=== PATIENT | female | born 1955 | race Caucasian/White ===

== ENCOUNTER 2019-10-01 08:56 | Outpatient (CLI) | payer OTHER, SELFPAY ==
--- NOTE | ~2019-10-01 | DEXA_ITS ---
Bone Density Report Name: Mallika Avitia Age: 63 Sex: Female Ethnicity: White Date of : 1955 Indication: postmenopausal; Referring Provider: Lisbeth Self Study: Bone densitometry was performed. Exam Date: October 01, 2019 Accession number: [id number] Bone Density: Region BMD T-score Z-score Classification AP Spine (L1, L2, L3) 0.926 -0.8 0.8 Normal Femoral Neck (Left) 0.783 -0.6 0.9 Normal Total Hip (Left) 0.893 -0.4 0.8 Normal Total Hip Bilateral Avg 0.919 -0.2 1.0 Normal Femoral Neck (Right) 0.634 -1.9 -0.5 Osteopenia Total Hip (Right) 0.943 0.0 1.2 Normal World Health Organization criteria for BMD impression classify patients as: Normal (T-score at or above -1.0), Osteopenia (T-score between -1.0 and -2.5), or Osteoporosis (T-score at or below -2.5). 10-year Fracture Risk(1): Major Osteoporotic Fracture 9.6% Hip Fracture 1.2% Reported Risk Factors: [place] (), Neck BMD=0.634, BMI=33.2 (1) FRAX(R) Version 3.08. Fracture probability calculated for an untreated patient. Fracture probability may be lower if the patient has received treatment. Clinical Information Provided by Patient: Has used the following medications: Vitamin D Patient maximum height was 60.5 Menopause Age: 50 Drinks caffeinated beverages Onset of menses at age 13 Number of children 2 Impression: The patient has low bone mass, based on the Right Femoral Neck T-score. The patient has an estimated ten-year risk of hip fracture of 1.2% and an estimated ten-year risk of major fracture of 9.6%, based on the WHO FRAX algorithm. Discussion: BONE DENSITY IS LOW AT ONE OR MORE SKELETAL SITES. This patient's lowest T-score is low at one or more skeletal sites. It meets the World Health Organization's (WHO) criteria for ?low bone mass? (T-score between -1.0 and -2.5). The patient's 10-year risk of fracture as calculated by FRAX is less than the threshold where pharmacological therapy is recommended by the National Osteoporosis Foundation (NOF). However, all treatment decisions require clinical judgment and consideration of individual patient factors, including patient preferences, comorbidities, previous drug use, risk factors not captured in the FRAX model (e.g., frailty, falls, vitamin D deficiency, increased bone turnover, interval significant decline in bone density) and possible under or overestimation of fracture risk by FRAX. The patient should follow a healthful lifestyle (good nutrition with adequate calcium and vitamin D, and appropriate weight-bearing exercise). Follow-Up: Consider repeating this study in 2 to 3 years to reassess this patient's status, or sooner if there is some new clinical indication. Reported by: AMMON on 10/01/2019 9:36:00 AM. Reviewe
--- NOTE | ~2019-10-01 | MM_ITS ---
EXAMINATION: MM screening [facility] w shasha HISTORY: Screening TECHNIQUE: Craniocaudal and mediolateral oblique 3-D tomosynthesis images were obtained and synthetic 2-D images were generated. CAD analysis was submitted and interpreted. COMPARISON: 04/28/2018 bilateral digital screening mammogram 09/19/2015 bilateral digital screening mammogram BREAST PARENCHYMAL COMPOSITION: There are scattered areas of fibroglandular density. FINDINGS: There is no evidence of suspicious mass, calcification, or architectural distortion to sugg est malignancy in either breast. There has been no suspicious interval change. IMPRESSION: 1. No mammographic evidence of malignancy. 2. Recommend routine screening mammography in one year. BI-RADS Category 1: Negative Reviewed, dictated and finalized at location A.
== END 2019-10-01 08:57 | disposition home or self-care (01) ==
PROVIDERS: Visit Provider Advanced Practice Midwife
DX: Z12.31 Encounter for screening mammogram for malignant neoplasm of breast (principal); Z13.820 Encounter for screening for osteoporosis; Z78.0 Asymptomatic menopausal state; M85.851 Other specified disorders of bone density and structure, right thigh
CPT/HCPCS: 77063; 77067; 77080

== ENCOUNTER 2020-10-04 09:26 | Outpatient (CLI) | payer OTHER, SELFPAY ==
--- NOTE | ~2020-10-04 | MM_ITS ---
EXAMINATION: MM screening [facility] BI w shasha HISTORY: Screening mammogram TECHNIQUE: Craniocaudal and mediolateral oblique 3-D tomosynthesis images were obtained and synthetic 2-D images were generated. CAD analysis was submitted and interpreted. COMPARISON: 10/01/2019, 05/07/2018, 04/18/2018, 09/19/2015 BREAST PARENCHYMAL COMPOSITION: There are scattered areas of fibroglandular density. FINDINGS: Stable architectural distortion in the right breast is consistent with history of excisiona l biopsy. There is no evidence of suspicious mass, calcification, or architectural distortion to sugg est malignancy in either breast. There has been no suspicious interval change. IMPRESSION: 1. No mammographic evidence of malignancy. 2. Recommend routine screening mammography in one year. BI-RADS Category 2: Benign finding(s). Reviewed, dictated and finalized at location A.
== END 2020-10-04 09:27 | disposition home or self-care (01) ==
LOC: ANHIMG 09:29
PROVIDERS: PCP Family Medicine; Visit Provider Advanced Practice Midwife
DX: Z12.31 Encounter for screening mammogram for malignant neoplasm of breast (principal)
CPT/HCPCS: 77063; 77067

== ENCOUNTER → 2020-10-07 10:25 | Outpatient (CLI) | payer OTHER, SELFPAY ==
--- NOTE | ~2020-10-07 | XR_ITS ---
XR lumbar spine min 4V DATE: 10/07/2020 10:40 INDICATION: Low back pain. No injury. TECHNIQUE: AP, lateral, bilateral oblique views, coned lateral lumbosacral view COMPARISON: None FINDINGS: There is mild levoscoliosis. There are six functional lumbar vertebrae. No fracture or bone destruction is detected. The lumbar pedicles are intact. No spondylolysis or spondylolisthesis. There is mild degenerative disc disease. The sacroiliac joints are intact. IMPRESSION: Mild levoscoliosis Mild degenerative disc disease Reviewed, dictated and finalized at location A.
== END ==
PROVIDERS: PCP Nurse Practitioner; Visit Provider Nurse Practitioner
DX: M51.36 Other intervertebral disc degeneration, lumbar region (principal)
CPT/HCPCS: 72110

== ENCOUNTER → 2020-11-22 14:57 | Outpatient (CLI) | payer MEDICARE, SELFPAY ==
--- NOTE | ~2020-11-22 | XR_ITS ---
XR knee LT min 4V DATE: 11/22/2020 15:30 INDICATION: Medial left knee pain TECHNIQUE: Standing AP, PA and lateral views. [place] view. COMPARISON: None FINDINGS: There is periarticular spurring of the patella. There is minimal periarticular spurring at the medial and lateral compartments. Medial and lateral compartment joint spaces are relatively prese rved. No fracture or dislocation or joint effusion, periosteal reaction or bone destruction or radiopaque i ntra-articular loose body is evident. Diffuse osteopenia IMPRESSION: Osteopenia Mild osteoarthritis Reviewed, dictated and finalized at location B.
--- NOTE | ~2020-11-22 | XR_ITS ---
XR knee RT min 4V DATE: 11/22/2020 15:31 INDICATION: Medial right knee pain, chronic TECHNIQUE: [place] and standing AP, PA and lateral views COMPARISON: None FINDINGS: There is tricompartment osteoarthritis with prominent periarticular patellar spurring, prom inent loss of medial compartment and mild periarticular spurring of the lateral compartment. No fracture, dislocation or joint effusion. No periosteal reaction or bone destruction. No radiopaq ue intraarticular loose body or chondrocalcinosis. IMPRESSION: Tricompartment osteoarthritis Reviewed, dictated and finalized at location B.
== END ==
PROVIDERS: PCP Nurse Practitioner; Visit Provider Nurse Practitioner
DX: M17.0 Bilateral primary osteoarthritis of knee (principal); M85.862 Other specified disorders of bone density and structure, left lower leg
CPT/HCPCS: 73564

== ENCOUNTER 2021-10-12 09:40 | Outpatient (CLI) | payer MEDICARE, SELFPAY ==
[2021-10-12 19:44] LABS: Basophils Percent Auto 0.5 % (0.2-1.2); Eosinophils Absolute Auto 0.2 K/mm3 (0-0.3); Eosinophils Percent Auto 3.2 % (0-4.4); Hematocrit 41.3 % (37.0-47.0); Hemoglobin 13.3 g/dL (12.0-15.0); Immature Granulocyte Absolute 0.01 K/mm3 (0.00-0.031); Immature Granulocyte Percent A 0.2 % (0-0.5); Lymphocytes Absolute Auto 2.15 K/mm3 (0.9-3.2); Lymphocytes Percent Auto 36.4 % (18.3-44.2); Mean Corpuscular HGB Conc 32.2 g/dl (32-36); Mean Corpuscular Hemoglobin 27.3 pg (26-34); Mean Corpuscular Volume 84.8 fl (80-100); Mean Platelet Volume 9.7 fl (7.4-10.4); Monocytes Absolute Auto 0.4 K/mm3 (0.1-0.6); Monocytes Percent Auto 7.4 % (2.6-8.5); Neutrophils Absolute Auto 3.1 K/mm3 (1.3-6.7); Neutrophils Percent Auto 52.3 % (45.5-73.1); Platelet Count Result 230 k/mm3 (150-375); Red Blood Count 4.87 M/mm3 (4.2-5.4); Red Cell Distribution Width 14.1 % (11.5-14.5); White Blood Count 5.9 K/mm3 (4.5-10.0)
[2021-10-12 19:59] LABS: LDL Cholesterol Direct 81 mg/dL
[2021-10-12 20:07] LABS: Alanine Aminotransferase 21 U/L (6-35); Albumin Level 4.1 g/dL (3.5-5.1); Alkaline Phosphatase 123 U/L (38-126); Anion Gap 12 mmol/L (8-16); Aspartate Amino Transferase 34 U/L (14-36); Bilirubin,Total 0.6 mg/dL (0.2-1.3); Blood Urea Nitrogen 15 mg/dL (7-17); Calcium 9.1 mg/dL (8.4-10.2); Carbon Dioxide 26 mmol/L (22-30); Chloride 102 mmol/L (98-107); Cholesterol 170 mg/dL (0-200); Estimated Glomerular Filt Rate > 60; Glucose 88 mg/dL (65-110); HDL Direct 45 mg/dL; Potassium 3.7 mmol/L (3.4-5.0); Sodium 140 mmol/L (137-145); Triglycerides 142 mg/dL (<150)
== END 2021-10-12 09:41 | disposition home or self-care (01) ==
LOC: ANHGOSHLAB 09:46
PROVIDERS: PCP Nurse Practitioner; Visit Provider Nurse Practitioner
DX: E78.5 Hyperlipidemia, unspecified (principal)
CPT/HCPCS: 36415; 80053; 80061; 85025

== ENCOUNTER 2021-10-30 08:01 | Outpatient (CLI) | payer MEDICARE, SELFPAY ==
--- NOTE | 2021-10-30 08:51 | ECG_ITS ---
Measurements Intervals [place] Rate: 71 P: 40 ID: 166 QRS: 3 QRSD: 81 T: 3 QT: 376 QTc: 409 Interpretive Statements SINUS RHYTHM BORDERLINE ST-T WAVE ABNORMALITY- ANT/INF LEADS BASELINE ARTIFACT- I, II, III, AVR, AVF, V3-V6 BORDERLINE ECG NO PREVIOUS ECG AVAILABLE FOR COMPARISON Electronically Signed On 10-30-2021 9:59:13 CDT by Randall Hill D.O.
[2021-10-30 09:43] LABS: Appearance Urine Clear (Clear); Bilirubin Urine Negative (Negative); Blood Urine Negative (Negative); Color Urine Yellow (Yellow); Glucose Urine UA Negative (Negative); Ketones Urine Negative (Negative); Leukocyte Esterase Ur Negative LEU/UL (Negative); Nitrate Urine Negative (Negative); Protein Urine Negative (Negative); Urobilinogen Urine 0.2 mg/dL (<2.0)
[2021-10-30 09:52] LABS: Urine Cotinine NEGATIVE
[2021-10-30 09:53] LABS: Partial Thromboplastin Time 26.9 SECONDS (22.3-36.8); Prothrombin Time 12.4 Seconds (11.1-14.7)
[2021-10-30 09:55] LABS: Hemoglobin A1C 5.3 % (<5.7)
[2021-10-30 09:59] LABS: Add Urine Microscopic? NO
== END 2021-10-30 08:02 | disposition home or self-care (01) ==
LOC: ANHSURGERY 08:05
PROVIDERS: PCP Nurse Practitioner; Visit Provider Orthopaedic Surgery
DX: M17.11 Unilateral primary osteoarthritis, right knee (principal); Z01.818 Encounter for other preprocedural examination; R94.31 Abnormal electrocardiogram [ECG] [EKG]
CPT/HCPCS: 80307; 81003; 83036; 85610; 85730; 87081; 93005

== ENCOUNTER 2021-11-16 19:10 | Observation (INO) | payer MEDICARE, SELFPAY ==
[2021-10-30 08:10] VITALS: BMI 35.9
--- NOTE | 2021-10-30 08:34 | PC.NURSE ---
Report to the Outpatient Waiting Room, entrance under the green pavilion located off [facility], at time __0600 on date __11/15/21 . OR Time: __729 . Time changes happen often and if your time is changed the preop area will call you the afternoon before. - You and your visitor will be asked to self-screen and do not enter if you have any COVID symptoms. - Only one visitor and NO children visitors are allowed at this time. - The patient visitor is requested to leave or wait in car when not with patient due to restrictions. - A mask is required within the hospital. Patients may have clear liquids (water, carbonated beverages, clear teas, apple juice) until 3 hours prior to surgery with a maximum of 20 ounces. - No food from midnight until time of surgery - Infants may have breast milk until 4 hours before surgery, formula 6 hours prior to surgery. - Children will be allowed to drink immediately following surgery. If applicable, please bring a bottle or sippy cup to assist with drinking. Juice, water, soda, and popsicles are readily available. For infants on formula, please bring formula the day of surgery. Pacifiers are allowed. Take the following medications with a SIP of water the morning of surgery: ___FLUOXETINE Medications to discontinue per physician __ASPIRIN AND IBUPROFEN PER DR OCAMPO. ALL VITAMINS AND SUPPLEMENTS 3 DAYS PRE OP Date to take last dose____11/11/21 Please no make-up, nail tunisian, hairspray, perfume, deodorant, or body powder the day of surgery. No jewelry (including any body piercings) or valuables the day of surgery, leave them at home. Please take a shower or bath the night before, or the morning of, surgery with an antibacterial soap. Wear comfortable, loose fitting clothing. Children are encouraged to wear pajamas. - Jewelry must be removed prior to entering the operating room. Rings and piercings that are not removed may be cut off. - The hospital will not accept responsibility for valuables. - Please leave all valuables, including medications, at home the day of surgery. If you are going home after surgery, a licensed otr company driver must drive you home. - NO public transportation without another adult. - We recommend that an adult stay with you for 24 hours following discharge. - We also recommend that you do not drive, make important decision, drink alcoholic beverages, or take any drugs that were not prescribed by your health care provider for at least 24 hours after your discharge time. For Pediatric surgeries, we recommend two adults accompany the child home (only one inside the building at this time). Follow any additional instructions given to you from your surgeon. If you or anyone in your household have experienced Covid symptoms in the past week, please notify your surgeon or the nurse liaison at the phone number below for possible testing. VERBAL AND WRITTEN instructions given to ___PATIENT and asked if any additional questions and then verbalized understanding. Patient advised to call surgeon office or pre surgery nurse liaison [phone] if any additional questions.
[2021-10-30 08:46] VITALS: BP 143/86; PULSE 72; RESP 18; TEMP 36.8; O2SAT 97
--- NOTE | 2021-11-14 14:10 | WPDANESEPPF ---
Anes - Initial Pre Proc Eval Procedure: Operation Date: 11/15/21 07:30 Proposed Procedures p Right Total Knee Arthroplasty - Merritt Valladares MD Date/Time: 11/14/21 14:10 Surgeon: Merritt Valladares MD Pre Op Diagnosis: right knee djd Patient Data Age: 66 Gender: F Height: 1.52 m Weight: 83.5 kg Last Vital Signs Temp 36.8 C 10/30/21 08:46 Pulse 72 10/30/21 08:46 Resp 18 10/30/21 08:46 BP 143/86 H 10/30/21 08:46 Pulse Ox 97 10/30/21 08:46 O2 Del Method Room Air 10/30/21 08:46 Allergies Allergy/AdvReac Type Severity Reaction Status Date / Time No Known Allergies Allergy Verified 11/15/21 06:25 Home Medications Medication Instructions Recorded Confirmed Type fluoxetine 20 mg capsule 20 mg PO DAILY 09/27/20 11/15/21 History aspirin 81 mg tablet,delayed 81 mg PO DAILY 11/21/20 11/15/21 History release tramadol 50 mg tablet 50 mg PO Q8H PRN pain #30 tabs 07/31/21 11/15/21 Rx atorvastatin 20 mg tablet See Rx Instructions .Route 10/02/21 11/15/21 Rx .COMPLEX #90 tabs cholecalciferol (vitamin D3) 50 50 mcg PO DAILY 10/30/21 11/15/21 History mcg (2,000 unit) tablet ibuprofen 400 mg tablet 400 mg PO TID PRN Pain 10/30/21 11/15/21 History vitamin E 200 unit tablet 180 mg PO DAILY 10/30/21 11/15/21 History ECG: Date of Service: 10/30/21 Procedure(s): CA 12 lead EKG Accession Number(s): [id number] cc: ~ ? Measurements Intervals? [place]? Rate: ? 71 ? P:? 40 [place]: ? 166? QRS:? 3 QRSD: ? 81 ? T:? 3 QT: ? 376? QTc:? 409? Interpretive Statements SINUS RHYTHM BORDERLINE ST-T WAVE ABNORMALITY- ANT/INF LEADS BASELINE ARTIFACT- I, II, III, AVR, AVF, V3-V6 BORDERLINE ECG NO PREVIOUS ECG AVAILABLE FOR COMPARISON Electronically Signed On 10-30-2021 9:59:13 CDT by Randall Hill D.O. Patient hx anesthesia problems: none Family hx anesthesia problems: none Results Review: All pre-operative results and documents have been reviewed as part of the pre-operative evaluation. [facility] Past Medical History Medical History (Updated 11/14/21 @ 14:11 by Davis Lawler MD) Anxiety Hyperlipidemia Left knee DJD Major depressive disorder, recurrent, unspecified Obesity Right knee DJD Surgical History Surgical History H/O section Family History Family History Father Depression Family history of alcoholism Family history of heart disease in male family member before age 55 Mother Depression Hypertension Family history of malignant neoplasm of kidney Other Asthma Cerebrovascular accident Family history of hypercholesterolemia Social History Social History Smoking status: Never smoker Additional smoking assessment comments: DENIES ANY FORM OF TOBACCO USE Alcohol intake: current Alcohol use details: 1-2 drinks per month Substance use: never Substance use type: does not use Living arrangements: with family Gender identity (if verbalized by the patient): Female Sexual Orientation (if Verbalized by the Patient): Straight or Heterosexual Spiritual care concerns: No Agree to blood products: Yes Anes - Eval Final PreProcedure Day of Procedure 11/14/21 14:10 Patient weight: obese Heart: regular rate and rhythm Lungs: clear to auscultation and normal air movement Airway: Mallampati scale class II Neurological: alert and oriented Last oral intake: >/= 8 hours ASA classification: III Emergent: no Anesthetic plan: proceed Anesthesia type and monitoring: general LMA Results Review: All pre-operative results and
[2021-11-15] VITALS (18 sets, daily range): BP systolic 116–151; BP diastolic 71–91; PULSE 75–105; RESP 10–20; TEMP 36.3–36.8; O2SAT 91–100; BMI 38.4
[2021-11-15] MEDS: ACETAMINOPHEN 500 MG TABLET 1000 MG PO (06:31)
[2021-11-15] MEDS: LACTATED RINGERS 1,000 ML 30 ML IV CONT ×3 (06:40→10:38)
[2021-11-15] MEDS: TRANEXAMIC ACID 1,000MG/ISO100 1,000 MG/100 ML BAG 200 MG IVPB (07:05)
--- NOTE | 2021-11-15 07:12 | WPDANESPNB ---
Anes - Peripheral Nerve Block Date/Time: 11/15/21 07:12 I have discussed with the patient/family/POA the placement of a peripheral nerve block for post-operative pain management, including associated risks, benefits, complications, and side effects. Alternative methods of post-operative analgesia were detailed. Questions were solicited and answers provided to the satisfaction of the patient/family/POA. Time-Out: A pre-procedural Time-Out was completed immediately before starting the procedure and confirmed: Patient Identification, Site, Procedure, Patient Position and the Availability of Requisite Equipment. Clinical Indications: Acute post-operative pain management requested by the operative surgeon. Nerve Block Insertion Note Anes-nerve block: adductor canal right Patient position: supine Skin prep: chlorhexidine Needle: 22 gauge, stimulating, insulated echogenic needle. Needle length: 80 mm Technique: ultrasound Technique comment: in plane Injectate: bupivacaine 0.5% with epi 5 mcg/ml (30cc) Observations: tolerated well Complications: none Procedure start time:: 725 Procedure end time:: 730
--- NOTE | 2021-11-15 07:13 | WPDHPUPDATE1 ---
History and Physical Update Update Date/Time: 11/15/21 07:13 History and Physical has been reviewed, including an updated exam of the patient. There are NO changes in the patient's condition. Risks, benefits, and alternatives have been discussed and questions answered. Patient agrees to proceed with procedure.
[2021-11-15] MEDS: ceFAZolin 2 GM/D5W 50 ML 2 GM/50 ML BAG IVPB ×3 (07:38→23:19)
[2021-11-15] MEDS: GENTAMICIN BONE CEMENT REFOBACIN 1 EACH TOPICAL (08:44)
[2021-11-15] MEDS: TRANEXAMIC ACID 1,000 MG/10 ML AMPUL 1000 MG IV PUSH (09:00)
--- NOTE | 2021-11-15 10:04 | W.PM.PROC2 ---
Procedure Note - Detailed Date of Procedure 11/15/21 Pre-op Diagnosis right knee djd Post-op Diagnosis Same Procedure Performed R TKA Surgeon Merritt Valladares MD Anesthesia General Description of Procedure THE RIGHT KNEE WAS PREPPED AND DRAPED IN THE STERILE FASHION. THERE WAS A 10 DEGREE FLEXION CONTRACTURE. A MIDLINE SKIN INCISION WAS MADE. A MEDIAL PARAPATELLAR ARTHROTOMY WAS MADE. THE PATELLA WAS EVERTED. THERE WAS TRICOMPARTMENT DJD. THERE WAS MINIMAL PATELLA DJD. AN INTRAMEDULLARY ALFRED WAS PLACED IN THE FEMUR. A DISTAL FEMORAL CUT WAS MADE IN 5 DEGREES OF VALGUS REMOVING APPROXIMATELY 9 MM OF BONE FROM THE DISTAL FEMUR. THE FEMUR WAS SIZED TO 57.5. A 57.5 FEMORAL CUTTING BLOCK WAS PLACED IN 3 DEGREES OF EXTERNAL ROTATION AND IN ALIGNMENT WITH ESDRAS'S LINE AND THE TRANSEPICONDYLAR AXIS. ANTERIOR POSTERIOR AND CHAMFER CUTS WERE MADE. THE CUTS WERE EXCELLENT. NEXT AN INTRAMEDULLARY CUTTING GUIDE WAS PLACED IN THE TIBIA. A TRANS TIBIAL CUT WAS MADE ALONG THE LONG AXIS OF THE TIBIA. APPROXIMATELY 10 MM OF BONE WAS REMOVED FROM THE HIGH SIDE OF THE TIBIA. THE TIBIA WAS THEN PLANED TO A SMOOTH SURFACE. POSTERIOR FEMORAL OSTEOPHYTES WERE REMOVED FROM THE FEMORAL CONDYLES. A 63 TIBIAL TRIAL WAS PLACED IN ALIGNMENT WITH THE 1/3 MEDIAL ASPECT OF THE TIBIAL TUBERCLE. THEN A 57.5 FEMORAL TRIAL COMPONENT WAS PLACED. BOTH HAD EXCELLENT FITS. EVENTUALLY A 10 MM CR POLYETHYLENE TRIAL COMPONENT WAS PLACED. THE KNEE WAS TAKEN THROUGH A RANGE OF MOTION. THE KNEE CAME OUT TO FULL EXTENSION. THERE WAS NO ABNORMAL TILT TO THE PATELLA. THERE WAS GOOD A/P AND VARUS/VALGUS STABILITY. THERE WAS NO EXCESSIVE ROLL BACK WITH FLEXION. THE TRIAL COMPONENTS WERE REMOVED. THEN A 57.5 FEMORAL COMPONENT AND 63 TIBIAL COMPONENT WITH A 10 CR POLYETHYLENE COMPONENT WERE CEMENTED INTO PLACE. ONCE THE CEMENT WAS HARD THE KNEE WAS TAKEN THROUGH A ROM AGAIN AND FOUND TO BE STABLE WITH NO PATELLA TILT NO EXCESSIVE ROLL BACK WITH FLEXION AND GOOD STABILITY WITH COMPLETE AND FULL EXTENSION. THE KNEE WAS IRRIGATED WITH STERILE BETADINE AND WATER FOR ABOUT 3 MINUTES. THE BLEEDERS WERE CAUTERIZED. THE ARTHROTOMY WAS REPAIRED WITH NUMBER 1 VICRYL. THE SUB CUTANEOUS LAYER WITH 2-0 VICRYL AND THE SKIN WITH AN. THE WOUND WAS WASHED AND A STERILE DRESSING WAS APPLIED. PATIENT WAS EXTUBATED. Estimated Blood Loss -150.0 Pathology None sent Complications No immediate complications Condition Stable Disposition PACU
[2021-11-15] MEDS: fentaNYL CITRATE INJ (*CRX) 100 MCG/2 ML VIAL 25 MCG IV PUSH ×4 (10:19→10:57)
[2021-11-15] MEDS: KETOROLAC 30 MG/ML VIAL (*BKC) IV PUSH (11:29)
--- NOTE | 2021-11-15 12:28 | ADMGEN ---
This patient, Mallika Avitia, was admitted to [facility] Room 327-01. Patient/family oriented to hospital policies and general routines including ID bracelet, bed and alarms, visiting hours, pain management, procedures, bathroom and other care routines, personal items, smoking policy, room service/diet, and visiting hours. Information on how to activate the Rapid Response Team has been discussed. Patient/Family are encouraged to report perceived risks to care and to ask questions if they do not understand what they are told or what they should do.
[2021-11-15] MEDS: oxyCODONE/ACETAMINOPHEN (*CRX) 5-325 MG TABLET 2 TABLET PO (12:40)
[2021-11-15] MEDS: SODIUM CHLORIDE 0.9% IV 1,000 ML 125 ML IV CONT (12:42)
--- NOTE | 2021-11-15 12:51 | SUR.PHASEI ---
1100 pt ready to transfer to floor, beds are unavailable at this time
[2021-11-15] MEDS: SENNA/DOCUSATE SODIUM TABLET 2 TAB PO (17:15)
[2021-11-15] MEDS: KETOROLAC 15 MG/ML VIAL (*BKC) IV PUSH ×2 (17:15→23:19)
[2021-11-15] MEDS: oxyCODONE/ACETAMINOPHEN (*CRX) 5-325 MG TABLET 1 TABLET PO (19:44)
--- NOTE | ~2021-11-16 | XR_ITS ---
EXAMINATION: XR knee RT 2V DATE: 11/15/2021 09:53 CDT INDICATION: Right total knee arthroplasty TECHNIQUE: 2 views right knee FINDINGS: There is a right total knee arthroplasty in expected position. Subcutaneous gas with fluid and air in the joint and overlying skin juanita are consistent with recent surgery. No evidence of p eriprosthetic fracture. IMPRESSION: 1. Recent right total knee arthroplasty. Reviewed, dictated and finalized at location B.
[2021-11-16 02:06] VITALS: BP 139/77; PULSE 84; RESP 17; TEMP 37.4; O2SAT 100
[2021-11-16] MEDS: KETOROLAC 15 MG/ML VIAL (*BKC) IV PUSH ×3 (05:11→17:00)
[2021-11-16] MEDS: oxyCODONE/ACETAMINOPHEN (*CRX) 5-325 MG TABLET 2 TABLET PO ×3 (05:11→17:02)
[2021-11-16 05:57] LABS: Basophils Percent Auto 0.3 % (0.2-1.2); Eosinophils Percent Auto 0.1 % (0-4.4); Hematocrit 34.8 % (37.0-47.0); Hemoglobin 10.9 g/dL (12.0-15.0); Immature Granulocyte Absolute 0.04 K/mm3 (0.00-0.031); Immature Granulocyte Percent A 0.4 % (0-0.5); Lymphocytes Absolute Auto 1.69 K/mm3 (0.9-3.2); Lymphocytes Percent Auto 16.4 % (18.3-44.2); Mean Corpuscular HGB Conc 31.3 g/dl (32-36); Mean Corpuscular Hemoglobin 27.1 pg (26-34); Mean Corpuscular Volume 86.6 fl (80-100); Mean Platelet Volume 9.3 fl (7.4-10.4); Monocytes Absolute Auto 1.1 K/mm3 (0.1-0.6); Monocytes Percent Auto 10.7 % (2.6-8.5); Neutrophils Absolute Auto 7.4 K/mm3 (1.3-6.7); Neutrophils Percent Auto 72.1 % (45.5-73.1); Platelet Count Result 200 k/mm3 (150-375); Red Blood Count 4.02 M/mm3 (4.2-5.4); Red Cell Distribution Width 13.6 % (11.5-14.5); White Blood Count 10.3 K/mm3 (4.5-10.0)
[2021-11-16] MEDS: ceFAZolin 2 GM/D5W 50 ML 2 GM/50 ML BAG IVPB (06:05)
[2021-11-16 06:12] LABS: Anion Gap 7 mmol/L (8-16); Blood Urea Nitrogen 13 mg/dL (7-17); Calcium 8.2 mg/dL (8.4-10.2); Carbon Dioxide 26 mmol/L (22-30); Chloride 100 mmol/L (98-107); Estimated CRCL calculation 68 ml/min; Estimated Glomerular Filt Rate > 60; Glucose 120 mg/dL (65-110); Potassium 3.6 mmol/L (3.4-5.0); Sodium 133 mmol/L (137-145)
--- NOTE | 2021-11-16 07:32 | WPDANESPN ---
Anes - Prog Note Post-Op Date/Time: 11/16/21 07:32 Cardiovascular status: normal Respiratory status: normal Airway patency: baseline Mental status: baseline Post-Op hydration status: normal Vital Signs: Last Vital Signs Temp 98.3 F 11/15/21 22:06 Pulse 83 11/15/21 22:06 Resp 19 11/15/21 22:06 BP 148/84 H 11/15/21 22:06 Pulse Ox 96 11/15/21 22:06 O2 Del Method Room Air 11/15/21 13:06 O2 Flow Rate 8 11/15/21 10:30 Pain Score (VAS): 0/10 I/O: Intake & Output 11/15/21 11/15/21 11/16/21 15:59 23:59 07:59 Intake Total 1999 480 800 Output Total 1000 Balance 2000 -520 800 Laboratory Tests 11/16/21 05:37 11/16/21 05:37 11/15/21 11/16/21 11/16/21 06:35 05:37 05:37 WBC 10.3 H RBC 4.02 L Hgb 10.9 L Hct 34.8 L MCV 86.6 MCH 27.1 MCHC 31.3 L RDW 13.6 Plt Count 200 MPV 9.3 Immature Gran % (Auto) 0.4 Neut % (Auto) 72.1 Lymph % (Auto) 16.4 L [place] % (Auto) 10.7 H Eos % (Auto) 0.1 Baso % (Auto) 0.3 Lymph # (Auto) 1.69 [place] # (Auto) 1.1 H Eos # (Auto) 0.0 Baso # (Auto) 0.0 Abs Immat Gran (auto) 0.04 H Absolute Neuts (auto) 7.4 H Absolute Nucleated RBC 0.0 Nucleated RBC % 0.0 Sodium 133 L Potassium 3.6 Chloride 100 Carbon Dioxide 26 Anion Gap 7 L BUN 13 Creatinine 0.70 Estim Creat Clear Calc 68 Estimated GFR > 60 Glucose 120 H Calcium 8.2 L Blood Type B Positive Antibody Screen Negative Post-procedural complaints: none Patient Feedback: Patient satisfied with anesthetic care.
[2021-11-16] MEDS: SENNA/DOCUSATE SODIUM TABLET 2 TAB PO ×2 (07:57→17:00)
[2021-11-16] MEDS: polyethylene glycoL 3350 17 GM POWD.PACK PO (07:57)
[2021-11-16] MEDS: FLUoxetine HCL 20 MG CAPSULE PO (07:57)
[2021-11-16] MEDS: ASPIRIN 81 MG ENTERIC TABLET PO (07:57)
[2021-11-16] MEDS: CHOLECALCIFEROL 1,000 UNITS TABLET 2000 UNITS PO (07:57)
[2021-11-16] MEDS: ATORVASTATIN 20 MG TABLET BY MOUTH (07:57)
[2021-11-16 08:00] VITALS: BP 137/76; PULSE 83; RESP 16; TEMP 36.8; O2SAT 96
--- NOTE | 2021-11-16 09:33 | PM.PNORT ---
Progress Note: A&P Assessment and Plan (1) S/P total knee arthroplasty: Qualifiers: Laterality: right Qualified Code(s): Z96.651 - Presence of right artificial knee joint Code(s): Z96.659 - Presence of unspecified artificial knee joint Status: Acute Assessment and Plan: POD #1 : Right TKA Continue PT/OT. WBAT. Walker. HIGH FALL RISK. Continue pain control. Ice Knee. Protect skin. DVT prophylaxis with Aspirin. SCDs. Incentive Spirometry Use reviewed. Monitor Dressing. Change prior to discharge. Bowel Regimen. Dispo: Home with Home Health pending progress with PT/OT Subjective Subjective Date/Time Seen: 11/16/21 09:33 Post Op day: 1 (Right TKA ) Principal diagnosis: Right Knee DJD Interval history: POD #1: Right TKA Patient up in chair at time of evaluation. Pain well controlled. Awaiting PT. Worked well with OT. Concerned about CPM machine not yet being delivered to her home. Review of Systems Review of Systems: All systems reviewed & are unremarkable except as noted in HPI and below Constitutional: Constitutional: Denies fever(s) and Denies headache(s) ENT: Denies headache(s) Cardiovascular: Cardiovascular: Denies chest pain, Denies diaphoresis, Denies palpitations and Denies dyspnea Respiratory: Respiratory: Denies dyspnea Gastrointestinal: Gastrointestinal: Denies abdominal pain, Denies constipation, Denies nausea and Denies vomiting Genitourinary: Genitourinary: Reports nocturia and Denies dysuria Musculoskeletal: Musculoskeletal: Reports arthralgias (Right Knee ) and Reports joint swelling (Right Knee ) Neurologic: Denies headache(s) Endocrine: Endocrine: Denies palpitations Exam Const: General: comfortable and no acute distress Resp: Effort & Inspection: normal respiratory effort Cardio: Rate: regular rate Rhythm: regular rhythm GI: GI Palp: Yes Soft to palpation, No Tenderness to palpation present (GI) and No Guarding due to palpation present (GI) Skin: General skin exam: wounds noted Wounds: wounds noted Other: Incision c/d/i. No surrounding redness/warmth. No hematoma. Mild ecchymosis. No wound dehiscence Neuro: Cognition (Neuro): normal cognition Other: NV intact aside from block. Moves toes. Sensation intact to light touch. +ankle dorsiflexion/plantarflexion. Extrem: Right lower extremity: normal to inspection, knee Details: tenderness (diffuse, mild ) Location: of the patella, swelling (diffuse, consistent with surgical intervention ), abnormal ROM Details: pain with active ROM during, pain with passive ROM during and with range as follows (limited due to recent surgical intervention ); able to extend lower leg actively and ecchymosis (mild ), lower leg (Negative Jeremiah's Sign ) Details: normal to inspection; no erythema and no tenderness, ankle (+ankle dorsiflexion/plantarflexion ) Details: normal to inspection, no edema and normal ROM; no tenderness, no swelling and no ecchymosis and foot Details: normal capillary refill, normal to inspection, vascular exam Details: dorsalis pedis pulse present and motor-sensory exam Details: light-touch normal; no tenderness Left lower extremity: normal to inspection Psych: Mental Status: mental status grossly normal Objective Data Vital Signs Vital Signs: Vital Signs - 24 hr 11/15/21 09:45 11/15/21 10:00 11/15/21 10:15 Temperature 36.4 C Pulse Rate 95 97 89 Respiratory Rate 13 12 11 L Blood Pressure 140/84 146/89 H 146/86 H Pulse Oximetry 100 100 100 Oxygen Delivery Simple Face Mask Simple Face Mask Simple Face Mask Oxygen Flow Rate 8 8 8 11/15/21 10:30 11/15/21 10:45 11/15/21 11:00 Temperature Pulse Rate 90 93 88 Respiratory Rate 20 10 L 14 Blood Pressure 141/79 H 132/80 124/77 Pulse Oximetry 97 93 95 Oxygen Delivery Simple Face Mask Room Air Room Air Oxygen Flow Rate 8 11/15/21 11:15 11/15/21 11:25 11/15/21 11:40 Temperature Pulse Rate 90 85 96 Respiratory Rate 18
[2021-11-16] MEDS: diazePAM (*CRX) 5 MG TABLET PO ×2 (10:53→21:15)
[2021-11-16 12:00] VITALS: BP 126/70; PULSE 81; RESP 16; TEMP 37; O2SAT 96
--- NOTE | 2021-11-16 15:00 | PC.NURSE ---
patient awake and labs being drawn. patient states feeling drowsy, but more comfortable at this time. will continue to monitor.
[2021-11-16 15:30] LABS: Anion Gap 8 mmol/L (8-16); Blood Urea Nitrogen 14 mg/dL (7-17); Calcium 8.4 mg/dL (8.4-10.2); Carbon Dioxide 28 mmol/L (22-30); Chloride 100 mmol/L (98-107); Estimated CRCL calculation 68 ml/min; Estimated Glomerular Filt Rate > 60; Glucose 120 mg/dL (65-110); Potassium 3.6 mmol/L (3.4-5.0); Sodium 136 mmol/L (137-145)
--- NOTE | 2021-11-16 15:43 | PCPTNOTE ---
PT attempted to see patient this afternoon for treatment, however patient having increased pain in R knee and rates pain as 9 out of 10. Pain remains at 9 following pain medication. Patient declined PT due to increased pain. PT will continue to follow.
[2021-11-16 16:00] VITALS: BP 109/68; PULSE 78; RESP 14; TEMP 37; O2SAT 96
[2021-11-16] MEDS: oxyCODONE/ACETAMINOPHEN (*CRX) 5-325 MG TABLET 1 TABLET PO (21:15)
[2021-11-16 22:10] VITALS: BP 141/67; PULSE 95; RESP 16; TEMP 36.8; O2SAT 97
[2021-11-17] MEDS: oxyCODONE/ACETAMINOPHEN (*CRX) 5-325 MG TABLET 1 TABLET PO (06:06)
[2021-11-17] MEDS: diazePAM (*CRX) 5 MG TABLET PO (06:08)
[2021-11-17 06:23] LABS: Anion Gap 10 mmol/L (8-16); Blood Urea Nitrogen 14 mg/dL (7-17); Carbon Dioxide 27 mmol/L (22-30); Chloride 99 mmol/L (98-107); Estimated CRCL calculation 78 ml/min; Estimated Glomerular Filt Rate > 60; Glucose 116 mg/dL (65-110); Potassium 3.6 mmol/L (3.4-5.0); Sodium 136 mmol/L (137-145)
[2021-11-17 06:25] VITALS: BP 133/74; PULSE 93; RESP 19; TEMP 37; O2SAT 97
[2021-11-17] MEDS: ATORVASTATIN 20 MG TABLET BY MOUTH (08:12)
[2021-11-17] MEDS: CHOLECALCIFEROL 1,000 UNITS TABLET 2000 UNITS PO (08:12)
[2021-11-17] MEDS: FLUoxetine HCL 20 MG CAPSULE PO (08:12)
[2021-11-17] MEDS: polyethylene glycoL 3350 17 GM POWD.PACK PO (08:12)
[2021-11-17] MEDS: SENNA/DOCUSATE SODIUM TABLET 2 TAB PO (08:12)
[2021-11-17] MEDS: ASPIRIN 81 MG ENTERIC TABLET PO (08:12)
--- NOTE | 2021-11-17 10:11 | PM.PNORT ---
Progress Note: A&P Assessment and Plan (1) S/P total knee arthroplasty: Qualifiers: Laterality: right Qualified Code(s): Z96.651 - Presence of right artificial knee joint Code(s): Z96.659 - Presence of unspecified artificial knee joint Status: Acute Assessment and Plan: POD #2 : Right TKA Continue PT/OT. WBAT. Walker. HIGH FALL RISK. Difficulty with pain control, Dr. Valladares aware. Continue current regimen. Ice Knee. Protect skin. DVT prophylaxis with Aspirin. SCDs. Incentive Spirometry Use reviewed. Monitor Dressing. Change prior to discharge. Bowel Regimen. Dispo: Home with Home Health pending progress with PT/OT (2) Hyponatremia: Code(s): E87.1 - Hypo-osmolality and hyponatremia Status: Acute Assessment and Plan: Postoperative sodium- 133, rechecked today at 136. Dr. Valladares notified. No recommendation for medicine consult at this time. Plan Patient having slow progress with pain control postoperatively. Requested Dr. Valladares examine and determine possible need for change to pain medication regimen. Will defer further discharge care planning pending evaluation and recommendations by Dr. Valladares. Subjective Subjective Date/Time Seen: 11/17/21 0900 Post Op day: 2 Principal diagnosis: Right Knee DJD Interval history: POD #2: Right TKA Patient ambulating to bathroom independently with walker. Still with reports of pain today. No other concerns. Review of Systems Review of Systems: All systems reviewed & are unremarkable except as noted in HPI and below Constitutional: Constitutional: Denies fever(s) and Denies headache(s) ENT: Denies headache(s) Cardiovascular: Cardiovascular: Denies chest pain, Denies diaphoresis, Denies palpitations and Denies dyspnea Respiratory: Respiratory: Denies dyspnea Gastrointestinal: Gastrointestinal: Denies abdominal pain, Denies constipation, Denies nausea and Denies vomiting Genitourinary: Genitourinary: Reports nocturia and Denies dysuria Musculoskeletal: Musculoskeletal: Reports arthralgias (Right Knee ) and Reports joint swelling (Right Knee ) Neurologic: Denies headache(s) Endocrine: Endocrine: Denies palpitations Exam Const: General: comfortable and no acute distress Resp: Effort & Inspection: normal respiratory effort Cardio: Rate: regular rate Rhythm: regular rhythm GI: GI Palp: Yes Soft to palpation, No Tenderness to palpation present (GI) and No Guarding due to palpation present (GI) Skin: General skin exam: wounds noted Wounds: wounds noted Other: Incision c/d/i. No surrounding redness/warmth. No hematoma. Mild ecchymosis. No wound dehiscence Neuro: Cognition (Neuro): normal cognition Other: NV intact aside from block. Moves toes. Sensation intact to light touch. +ankle dorsiflexion/plantarflexion. Extrem: Right lower extremity: normal to inspection, knee Details: tenderness (diffuse, mild ) Location: of the patella, swelling (diffuse, consistent with surgical intervention ), abnormal ROM Details: pain with active ROM during, pain with passive ROM during and with range as follows (limited due to recent surgical intervention ); able to extend lower leg actively and ecchymosis (mild ), lower leg (Negative Jeremiah's Sign ) Details: normal to inspection; no erythema and no tenderness, ankle (+ankle dorsiflexion/plantarflexion ) Details: normal to inspection, no edema and normal ROM; no tenderness, no swelling and no ecchymosis and foot Details: normal capillary refill, normal to inspection, vascular exam Details: dorsalis pedis pulse present and motor-sensory exam Details: light-touch normal; no tenderness Left lower extremity: normal to inspection Psych: Mental Status: mental status grossly normal Objective Data Vital Signs Vital Signs: Vital Signs - 24 hr 11/16/21 12:00 11/16/21 16:00 11/16/21 20:00 Temperature 37.0 C 37.0 C Pulse Rate 81 78 Respiratory Rate 16 14 Blood Pressure 12
[2021-11-17] MEDS: oxyCODONE/ACETAMINOPHEN (*CRX) 5-325 MG TABLET 2 TABLET PO (11:32)
[2021-11-17 14:00] VITALS: BP 117/68; PULSE 92; RESP 16; TEMP 36.7; O2SAT 93
--- NOTE | 2021-11-17 14:09 | PM.DS ---
DS: Admitting Diagnosis Discharge Date 11/17/21 Admitting Diagnosis Right Knee DJD DS: Discharge Diagnosis Discharge Diagnosis (1) S/P total knee arthroplasty: Qualifiers: Laterality: right Qualified Code(s): Z96.651 - Presence of right artificial knee joint Code(s): Z96.659 - Presence of unspecified artificial knee joint Status: Acute Assessment and Plan: POD #2 : Right TKA Continue PT/OT. WBAT. Walker. HIGH FALL RISK. Difficulty with pain control, Dr. Valladares aware. Continue current regimen. Ice Knee. Protect skin. DVT prophylaxis with Aspirin. SCDs. Incentive Spirometry Use reviewed. Monitor Dressing. Change prior to discharge. Bowel Regimen. Dispo: Home with Home Health pending progress with PT/OT (2) Hyponatremia: Code(s): E87.1 - Hypo-osmolality and hyponatremia Status: Acute Assessment and Plan: Postoperative sodium- 133, rechecked today at 136. Dr. Valladares notified. No recommendation for medicine consult at this time. DS: Summary Hospital Course Reason for hospitalization: Right TKA Hospital Course: 6 year old female admitted s/p Right TKA for postoperative medical management, paint control and mobilization with PT/OT. Slow progress with PT/OT on POD #1, uncontrolled pain and hyponatremia. Required an additional overnight in the hospital. Patient progressed well with PT/OT on POD #2, pain well controlled and improvement in sodium levels. Vitals stable throughout. They have been cleared to be discharged home with home health at this time. Follow up planned for 3 weeks in the outpatient orthopedic clinic with Dr. Valladares. Status at Discharge Functional status at discharge: uses cane/walker Overall status at discharge: patient is progressing back to baseline Time Spent with Patient Time attestation: Total time spent providing and/or coordinating discharge services: Exam Const: General: comfortable and no acute distress Resp: Effort & Inspection: normal respiratory effort Cardio: Rate: regular rate Rhythm: regular rhythm Skin: General skin exam: wounds noted Wounds: wounds noted Other: Incision c/d/i. No surrounding redness/warmth. No hematoma. Mild ecchymosis. No wound dehiscence Neuro: Cognition (Neuro): normal cognition Other: NV intact aside from block. Moves toes. Sensation intact to light touch. +ankle dorsiflexion/plantarflexion. Extrem: Right lower extremity: normal to inspection, knee Details: tenderness (diffuse, mild ) Location: of the patella, swelling (diffuse, consistent with surgical intervention ), abnormal ROM Details: pain with active ROM during, pain with passive ROM during and with range as follows (limited due to recent surgical intervention ); able to extend lower leg actively and ecchymosis (mild ), lower leg (Negative Jeremiah's Sign ) Details: normal to inspection; no erythema and no tenderness, ankle (+ankle dorsiflexion/plantarflexion ) Details: normal to inspection, no edema and normal ROM; no tenderness, no swelling and no ecchymosis and foot Details: normal capillary refill, normal to inspection, vascular exam Details: dorsalis pedis pulse present and motor-sensory exam Details: light-touch normal; no tenderness Left lower extremity: normal to inspection Psych: Mental Status: mental status grossly normal DS: Data Data Completed and Pending Labs on day of discharge: Labs from last 24 hours 11/17/21 11/16/21 05:35 15:15 Sodium 136 L 136 L Potassium 3.6 3.6 Chloride 99 100 Carbon Dioxide 27 28 Anion Gap 10 8 BUN 14 14 Creatinine 0.60 L 0.70 Estim Creat Clear Calc 78 68 Estimated GFR > 60 > 60 Glucose 116 H 120 H Calcium 8.0 L 8.4 Discharge Plan Discharge Attending physician on discharge: Merritt Valladares Discharging Clinician: Otilia Morales Anticipated Discharge Date/Time: 11/17/21 12:00 Patient Disposition: Home Health Service Activity: may shower, no driving a
== END 2021-11-17 14:50 | disposition home health service (06) ==
LOC: ANHSURGERY 21:43 → ANH3MEDSUR 21:43
PROVIDERS: Nurse Practitioner Family; Admitting Provider Orthopaedic Surgery; PCP Nurse Practitioner; Visit Provider Orthopaedic Surgery
PROC: (CPT 27447; principal; 2021-11-15 07:30)
DX: M17.11 Unilateral primary osteoarthritis, right knee (principal); E87.1 Hypo-osmolality and hyponatremia; F41.9 Anxiety disorder, unspecified; E78.5 Hyperlipidemia, unspecified; F33.9 Major depressive disorder, recurrent, unspecified; E66.9 Obesity, unspecified; Z68.34 Body mass index [BMI] 34.0-34.9, adult; G89.18 Other acute postprocedural pain; F10.90 Alcohol use, unspecified, uncomplicated; Z79.82 Long term (current) use of aspirin; Z79.891 Long term (current) use of opiate analgesic; Z79.1 Long term (current) use of non-steroidal anti-inflammatories (NSAID); Z79.899 Other long term (current) drug therapy; Z84.89 Family history of other specified conditions; Z82.49 Family history of ischemic heart disease and other diseases of the circulatory system
CPT/HCPCS: 64447; 27447; 36415; 73560; 80048; 80307; 81003; 83036; 85025; 85610; 85730; 86850; 86900; 86901; 87081; 93005; 97110; 97116; 97161; 97165; 97530; 97535; A9270; C1713; C1776; G0378; J0171; J0690; J1100; J1885; J2250; J2270; J2405; J2704; J2795; J3010; J7030; J7120

== ENCOUNTER 2021-11-22 13:16 | Outpatient (NON) | payer MEDICARE, SELFPAY ==
[2021-11-22 14:06] LABS: Anion Gap 7 mmol/L (8-16); Blood Urea Nitrogen 14 mg/dL (7-17); Calcium 8.5 mg/dL (8.4-10.2); Carbon Dioxide 28 mmol/L (22-30); Chloride 101 mmol/L (98-107); Estimated Glomerular Filt Rate > 60; Glucose 81 mg/dL (65-110); Potassium 3.7 mmol/L (3.4-5.0); Sodium 136 mmol/L (137-145)
== END 2021-11-22 13:17 | disposition home or self-care (01) ==
PROVIDERS: PCP Nurse Practitioner; Visit Provider Nurse Practitioner Family
DX: E87.1 Hypo-osmolality and hyponatremia (principal)
CPT/HCPCS: 80048

== ENCOUNTER 2022-01-05 09:28 | Outpatient (CLI) | payer MEDICARE, SELFPAY ==
--- NOTE | ~2022-01-05 | MM_ITS ---
EXAMINATION: MM screening [facility] BI w shasha HISTORY: Screening mammogram TECHNIQUE: Craniocaudal and mediolateral oblique 3-D tomosynthesis images were obtained and synthetic 2-D images were generated. CAD analysis was submitted and interpreted. COMPARISON: 09/30/2020, 10/01/2019, 07/22/2018 bilateral screening mammogram examinations BREAST PARENCHYMAL COMPOSITION: There are scattered areas of fibroglandular density. FINDINGS: There is a biopsy marker on the right. Mild stable right architectural distortion, likely r elated to history of 2 prior benign right breast biopsies, one open excisional biopsy and 1 needle bi opsy. There is no evidence of suspicious mass, calcification, or new architectural distortion to suggest m alignancy in either breast. There has been no suspicious interval change. IMPRESSION: 1. No mammographic evidence of malignancy. 2. Recommend routine screening mammography in one year. BI-RADS Category 2: Benign finding(s). Reviewed, dictated and finalized at location A. SAW OPERATOR
== END 2022-01-05 09:29 | disposition home or self-care (01) ==
PROVIDERS: PCP Nurse Practitioner; Visit Provider Advanced Practice Midwife
DX: Z12.31 Encounter for screening mammogram for malignant neoplasm of breast (principal)
CPT/HCPCS: 77063; 77067

== ENCOUNTER 2022-09-26 09:40 | Outpatient (CLI) | payer MEDICARE, SELFPAY ==
[2022-09-26 19:26] LABS: Basophils Percent Auto 0.8 % (0.2-1.2); Eosinophils Absolute Auto 0.1 K/mm3 (0-0.3); Eosinophils Percent Auto 2.6 % (0-4.4); Hematocrit 43.3 % (37.0-47.0); Hemoglobin 13.7 g/dL (12.0-15.0); Immature Granulocyte Absolute 0.01 K/mm3 (0.00-0.031); Immature Granulocyte Percent A 0.2 % (0-0.5); Lymphocytes Absolute Auto 1.25 K/mm3 (0.9-3.2); Lymphocytes Percent Auto 23.5 % (18.3-44.2); Mean Corpuscular HGB Conc 31.6 g/dl (32-36); Mean Corpuscular Hemoglobin 28.2 pg (26-34); Mean Corpuscular Volume 89.1 fl (80-100); Mean Platelet Volume 10.1 fl (7.4-10.4); Monocytes Absolute Auto 0.4 K/mm3 (0.1-0.6); Monocytes Percent Auto 7.3 % (2.6-8.5); Neutrophils Absolute Auto 3.5 K/mm3 (1.3-6.7); Neutrophils Percent Auto 65.6 % (45.5-73.1); Platelet Count Result 218 k/mm3 (150-375); Red Blood Count 4.86 M/mm3 (4.2-5.4); Red Cell Distribution Width 13.7 % (11.5-14.5); White Blood Count 5.3 K/mm3 (4.5-10.0)
[2022-09-26 20:30] LABS: Vitamin D 25 Hydroxy 46.1 ng/mL
[2022-09-26 20:40] LABS: Alanine Aminotransferase 19 U/L (6-35); Albumin Level 4.3 g/dL (3.5-5.1); Alkaline Phosphatase 129 U/L (38-126); Anion Gap 6 mmol/L (8-16); Aspartate Amino Transferase 27 U/L (14-36); Bilirubin,Total 0.5 mg/dL (0.2-1.3); Blood Urea Nitrogen 10 mg/dL (7-17); Calcium 9.1 mg/dL (8.4-10.2); Carbon Dioxide 32 mmol/L (22-30); Chloride 101 mmol/L (98-107); Cholesterol 157 mg/dL (0-200); Estimated Glomerular Filt Rate > 60; Glucose 84 mg/dL (65-110); HDL Direct 43 mg/dL; Sodium 139 mmol/L (137-145); Triglycerides 173 mg/dL (<150)
[2022-09-26 20:51] LABS: LDL Cholesterol Direct 78 mg/dL
== END 2022-09-26 09:41 | disposition home or self-care (01) ==
PROVIDERS: PCP Nurse Practitioner; Visit Provider Nurse Practitioner
DX: E78.5 Hyperlipidemia, unspecified (principal); E55.9 Vitamin D deficiency, unspecified
CPT/HCPCS: 36415; 80053; 80061; 82306; 85025

== ENCOUNTER 2023-04-09 09:13 | Outpatient (CLI) | payer MEDICARE, SELFPAY ==
[2023-04-09 18:43] LABS: Basophils Percent Auto 0.5 % (0.2-1.2); Eosinophils Absolute Auto 0.2 K/mm3 (0-0.3); Eosinophils Percent Auto 2.9 % (0-4.4); Hematocrit 44.1 % (37.0-47.0); Hemoglobin 13.6 g/dL (12.0-15.0); Lymphocytes Absolute Auto 1.48 K/mm3 (0.9-3.2); Lymphocytes Percent Auto 26.6 % (18.3-44.2); Mean Corpuscular HGB Conc 30.8 g/dl (32-36); Mean Corpuscular Hemoglobin 27.6 pg (26-34); Mean Corpuscular Volume 89.6 fl (80-100); Mean Platelet Volume 10.2 fl (7.4-10.4); Monocytes Absolute Auto 0.4 K/mm3 (0.1-0.6); Monocytes Percent Auto 7.4 % (2.6-8.5); Neutrophils Absolute Auto 3.5 K/mm3 (1.3-6.7); Neutrophils Percent Auto 62.6 % (45.5-73.1); Platelet Count Result 233 k/mm3 (150-375); Red Blood Count 4.92 M/mm3 (4.2-5.4); Red Cell Distribution Width 13.5 % (11.5-14.5); White Blood Count 5.6 K/mm3 (4.5-10.0)
[2023-04-09 18:47] LABS: Alanine Aminotransferase 16 U/L (6-35); Albumin Level 4.1 g/dL (3.5-5.1); Alkaline Phosphatase 133 U/L (38-126); Anion Gap 2 mmol/L (8-16); Aspartate Amino Transferase 44 U/L (14-36); Bilirubin,Total 0.4 mg/dL (0.2-1.3); Blood Urea Nitrogen 11 mg/dL (7-17); Calcium 9.3 mg/dL (8.4-10.2); Carbon Dioxide 34 mmol/L (22-30); Chloride 103 mmol/L (98-107); Cholesterol 166 mg/dL (0-200); Estimated Glomerular Filt Rate > 60; Glucose 84 mg/dL (65-110); HDL Direct 45 mg/dL; Potassium 3.8 mmol/L (3.4-5.0); Sodium 139 mmol/L (137-145); Triglycerides 158 mg/dL (<150)
[2023-04-09 18:58] LABS: LDL Cholesterol Direct 94 mg/dL
[2023-04-09 20:31] LABS: Vitamin D 25 Hydroxy 47.2 ng/mL
[2023-04-09 20:49] LABS: Hemoglobin A1C 5.5 % (<5.7)
== END 2023-04-09 09:14 | disposition home or self-care (01) ==
PROVIDERS: PCP Family Medicine; Visit Provider Family Medicine
DX: E78.5 Hyperlipidemia, unspecified (principal); F33.9 Major depressive disorder, recurrent, unspecified; R73.9 Hyperglycemia, unspecified; Z79.899 Other long term (current) drug therapy; E53.8 Deficiency of other specified B group vitamins; E55.9 Vitamin D deficiency, unspecified; Z00.00 Encounter for general adult medical examination without abnormal findings
CPT/HCPCS: 36415; 80053; 80061; 82306; 82607; 83036; 84443; 85025

== ENCOUNTER 2023-05-01 16:43 | Outpatient (CLI) | payer MEDICARE, SELFPAY ==
--- NOTE | ~2023-05-01 | MM_ITS ---
EXAMINATION: MM screening [facility] BI w shasha HISTORY: Screening TECHNIQUE: Craniocaudal and mediolateral oblique 3-D tomosynthesis images were obtained and synthetic 2-D images were generated. CAD analysis was submitted and interpreted. COMPARISON: Comparison to multiple prior studies sequentially, with oldest reviewed study dated 09/2018. BREAST PARENCHYMAL COMPOSITION: Not dense: There are scattered areas of fibroglandular density. FINDINGS: There is no evidence of suspicious mass, calcification, or architectural distortion to sugg est malignancy in either breast. There has been no suspicious interval change. IMPRESSION: 1. No mammographic evidence of malignancy. 2. Recommend routine screening mammography in one year. BI-RADS Category 1: Negative Reviewed, dictated and finalized at location A.
== END 2023-05-01 16:44 | disposition home or self-care (01) ==
LOC: ANHIMG 16:46
PROVIDERS: PCP Family Medicine; Visit Provider Advanced Practice Midwife
DX: Z12.31 Encounter for screening mammogram for malignant neoplasm of breast (principal)
CPT/HCPCS: 77063; 77067

== ENCOUNTER 2023-05-16 08:56 | Outpatient (CLI) | payer MEDICARE, SELFPAY ==
[2023-05-16 14:11] LABS: Alanine Aminotransferase 16 U/L (6-35); Albumin Level 4.2 g/dL (3.5-5.1); Alkaline Phosphatase 121 U/L (38-126); Anion Gap 2 mmol/L (4-12); Aspartate Amino Transferase 36 U/L (14-36); Bilirubin,Total 0.6 mg/dL (0.2-1.3); Blood Urea Nitrogen 16 mg/dL (7-17); Calcium 9.5 mg/dL (8.4-10.2); Carbon Dioxide 34 mmol/L (22-30); Chloride 102 mmol/L (98-107); Estimated Glomerular Filt Rate > 60; Glucose 82 mg/dL (65-110); Potassium 3.8 mmol/L (3.4-5.0); Sodium 138 mmol/L (137-145)
== END 2023-05-16 08:57 | disposition home or self-care (01) ==
PROVIDERS: PCP Family Medicine; Visit Provider Family Medicine
DX: R74.01 Elevation of levels of liver transaminase levels (principal)
CPT/HCPCS: 36415; 80053

== ENCOUNTER 2023-07-25 13:00 | Outpatient (CLI) | payer MEDICARE, SELFPAY ==
--- NOTE | ~2023-07-25 | DEXA_ITS ---
Bone Density Report Name: SHERRIE HORN Age: 67 Sex: Female Ethnicity: White Date of : 1955 Indication: postmenopausal; screening for osteoporosis; history of glucocorticoids; Referring Provider: EPIFANIO العلي Study: Bone densitometry was performed. Exam Date: July 25, 2023 Accession number: [id number] Bone Density: Region BMD T-score Z-score Classification AP Spine(L1-L4) 0.924 -1.1 0.8 Osteopenia Femoral Neck (Left) 0.651 -1.8 -0.1 Osteopenia Total Hip (Left) 0.983 0.3 1.7 Normal Femoral Neck (Right) 0.598 -2.3 -0.6 Osteopenia Total Hip (Right) 0.958 0.1 1.5 Normal Total Hip Mean 0.970 0.2 1.6 Normal World Health Organization criteria for BMD impression classify patients as: Normal (T-score at or above -1.0), Osteopenia (T-score between -1.0 and -2.5), or Osteoporosis (T-score at or below -2.5). 10-year Fracture Risk(1): Major Osteoporotic Fracture 18% Hip Fracture 3.9% Reported Risk Factors: [place] (), Neck BMD=0.598, BMI=35.3, glucocorticoids (1) FRAX(R) Version 3.08. Fracture probability calculated for an untreated patient. Fracture probability may be lower if the patient has received treatment. Previous Exams: Region Exam Age BMD T-score BMD Change BMD Change Date g/cm2 vs Baseline vs Previous Total Hip(Left) 07/25/2023 67 0.983 0.3 0.090 (10.1%)* 0.090 (10.1%)* 10/01/2019 63 0.893 -0.4 Total Hip(Right) 07/25/2023 67 0.958 0.1 0.015 (1.6%) 0.015 (1.6%) 10/01/2019 63 0.943 0.0 *Denotes significance at 95% confidence level, LSC for Total Hip = 0.027 g/cm2 Clinical Information Provided by Patient: Has taken Glucocorticoids Has used the following medications: Vitamin D, Calcium Patient maximum height was 50.5 Menopause Age: 50 Drinks caffeinated beverages Onset of menses at age 13 Number of children 2 Impression: The patient has low bone mass, based on the Right Femoral Neck T-score. The patient has an estimated ten-year risk of hip fracture of 3.9% and an estimated ten-year risk of major fracture of 18%, based on the WHO FRAX algorithm. The patient has risk factors, including: history of glucocorticoid therapy. No significant bone loss was observed. Discussion: BONE DENSITY IS LOW AT ONE OR MORE SKELETAL SITES. THE PATIENT'S BMD AND CLINICAL RISK FACTORS CONTRIBUTE TO THIS PATIENT'S INCREASED RISK OF FRACTURE. This patient's lowest T-score is low at one or more skeletal sites. It meets the World He
== END 2023-07-25 13:01 | disposition home or self-care (01) ==
PROVIDERS: PCP Family Medicine; Visit Provider Family Medicine
DX: Z78.0 Asymptomatic menopausal state (principal); M85.88 Other specified disorders of bone density and structure, other site; M85.852 Other specified disorders of bone density and structure, left thigh; M85.851 Other specified disorders of bone density and structure, right thigh
CPT/HCPCS: 77080

== ENCOUNTER 2024-06-23 08:31 | Outpatient (CLI) | payer MEDICARE, SELFPAY ==
--- NOTE | ~2024-06-23 | MM_ITS ---
EXAMINATION: MM screening [place] BI w shasha HISTORY: Screening mammogram TECHNIQUE: Craniocaudal and mediolateral oblique 3-D tomosynthesis images were obtained and synthetic 2-D images were generated. CAD analysis was submitted and interpreted. COMPARISON: 05/01/2023, 12/26/2021, 10/04/2020 BREAST PARENCHYMAL COMPOSITION:Not Dense. There are scattered areas of fibroglandular density. FINDINGS: There is a more conspicuous small low-density mass of the lower, inner left breast. Stable parenchymal appearance of the right breast. No suspicious microcalcifications. IMPRESSION: More conspicuous small lower, inner left breast mass. Spot compression views and ultrasound are recom mended for further evaluation. BI-RADS Category 0: Incomplete: Needs additional imaging evaluation. Reviewed, dictated and finalized at [facility]. IMPRESSION: More conspicuous small lower, inner left breast mass. Spot compression views an d ultrasound are recommended for further evaluation. BI-RADS Category 0: Incomplete: Needs additional imaging evaluation.
--- OUTSIDE RECORDS SUMMARY | 2024-06-23 08:40 | XMS_ITS | Data Portability ---
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 She appears to have an excellent result both clinically with respect to her range of motion and stability in all positions and radiographically . I discussed with her that it is very common for patients to feel a bandlike tightness feeling across the front of the knee at the infrapatellar level like she is describing. This usually improves with time. I discussed with her that studies show that full improvement takes between 12 and 18 months so I would expect she will feel better for half months from now than she does now in some patients continue to improve over time. I explained that 15% of patients in patient reported outcomes studies will have a chronic feeling of anterior knee soreness and is possible that she may be 1 of these patients. Her 02/20 discomfort suggests that this is going to continue to improve and she may eventually get to the point were she has no discomfort. I would also recommend that she stop riding the recumbent stationary bike which is year taping to the fronts of knees inserted people. It is somewhat of an unnatural position to be in and this may be causing irritation to the anterior soft tissues. I do not think that riding this recumbent bike is going to be helpful to her in achieving her goal of causing the knee to feel like a normal knee and it may cause continued problems. I would suggest she stop doing that for the time being and just focus on normal activities of daily living. She has normal quadriceps from so I do not think that the stationary recumbent bike is going to offer her any benefit but could be irritating. I also explained her that the knee replacement is not make the knee identical to a normal knee. Many patients have mild residual symptoms that in most cases are very mild and do not interfere with activities of daily living. I have also suggested that she try losing weight. This may be helpful in decreasing the strain on the anterior soft tissues of the knee. She should do this not by increasing her repetitive exercises involving the knee which will aggravate knee but rather by dieting. She notes that she is on weight watchers currently and attempting to lose some weight. I have discussed with her that there is always the possibility of low-grade infection causing symptoms but I see no evidence clinically of that at this time. If she starts having worsening symptoms the knee could be aspirated to rule that out but I do not think that is indicated today based on her benign clinical appearance. In summary, I believe she has a well-functioning knee replacement right knee that still has some mild residual irritation and hopefully by her giving up the recumbent stationary bike and weight loss and passage of additional time she will eventually feel that her knee is close to perfect. She is scheduled to follow-up with the operating physician the couple months and she is going to keep that appointment. I can see her back on an as-needed basis. 30 minutes were spent total care this patient more than half the time spent in [id number] care. [email or web address] Not available 01/05/2023 16:03:03 Plan of Treatment Reminders Order Date Submit Date Provider Last Modified By Organization Details Last Modified Time Details Appointments None record ed. Lab None record ed. Referral None record ed. Procedures None record ed. Surgeries None record ed. Imaging None record ed. Medication Orders None record ed. Patient TargetsNo targets recorded. Patient InstructionsNo instructions recorded. Reason for Referral None Reported. Problems Name Problem SNOMED Code Status Onset Date Resolution Date Notes Provider Name and Address Organization Details Recorded Time Pain of right knee joint [id number] Active 2022 JACKSON Pinto [employer] 14:50:28 Problem Notes None recorded. Procedures Surgical History Date Name Laterality Status Provider Name and Address Organization Details Recorded Time section completed JACKSON Zaragoza [employer] 12/31/2022 14:49:44 Knee Replacement completed JACKSON Zaragoza [facility] [employer] [facility] 12/31/2022 14:49:52 Imaging Results None recorded. Procedure Notes None recorded. Medical Equipment None Reported. Allergies No known drug allergies Medications Name Sig Start Date Stop Date Status Note LastModified by Organization Details LastModified Time atorvastatin 20 mg tablet TAKE 1 TABLET BY MOUTH EVERY DAY AT BEDTIME active Not Available Not Available No t Available fluoxetine 20 mg capsule TAKE 1 CAPSULE BY MOUTH EVERY DAY active Not Available Not Available No t Available Vitals Date Recorded Body height Body mass index (BMI) Body weight Provider Name and Address Organization Details Last Updated DateTime 12/31/2022 151.13 cm 34.8 kg/m2 95359.66 g JACKSON Pinto [facility] [employer] [facility] 12/31/2022 14:59:55 Social History None recorded. Functional Status Question Answer Note LastModified by Organizat ion Details LastModified Time What is your level of alcohol consumption? Occasional Information not available 12/31/2022 Mental Status None recorded. Family History Relationship Description Onset Age of this Age Resolved Age Notes LastModified by Organization Details LastModified Time Mother Heart disease [email or web address] Not available 2022 14:49:01 Mother Family history of malignant neoplasm [email or web address] Not available 2022 14:49:23 Father Family history of stroke [email or web address] Not available 2022 14:49:13 Medical History No medical history recorded. Gynecological HistoryNo gynecological history recorded. Obstetrics History GPAL:G 0 P 0 0 0 0 Past Encounters Encounter ID Performer Location Encounter Start Date Encounter Closed Date Diagnosis/Indication Diagnosis SNOMED-CT Code Diagnosis ICD10 Code Diagnosis Note [id number] Jose Luis Andrea MD [facility] [address] [place] [address] 12/31/2022 14:29:51 01/07/2023 11:05:50 Pain of right knee joint [id number] 04550 M25.561 Health Concerns Section Related Observation LastModified by Organization Detai ls LastModified Time None Recorded Concern Status LastModified by Organization Details LastModified Time None Recorded Advance Directives Directive None Recorded Payers Encounter Date Sequence Insurance Name Policy Number Policy Ram Covered Member ID Rma Member ID Guarantor Name 12/31/2022 1 [employer] (MEDICARE REPLACEMENT PPO) [id number] Mallika Montanez Sadi [id number] Mallika Avitia Notes Date Note Type Note Provider Name and Address Organization Details Recorded Time 12/31/2022 text/html Patient is 67-year-old female who presents for evaluation of her right knee pain. She underwent right total knee arthroplasty by another orthopedic surgeon 13 half months ago. She has several complaints and is concerned that there is a problem with her knee replacement. She had no trouble with wound healing she has had no infections no fevers or chills. The pain that she had before surgery leading up to her surgery is gone and when she does have soreness she estimates it to be about 1/10 in severity. She feels like there are sharp edges over the anteromedial and anterolateral aspects of the tibial plateau. This results in a pressure discomfort after long walks. She feels this when she 1st awakens in the morning in the feels stiff in the morning. She underwent 2 months of physical therapy after surgery and then came back and underwent another 2 months of physical therapy. She is trying to exercise more and more in the hopes this will make her knee feel more normal. She has been riding a recumbent bike 2 miles at a time on nearly daily basis. She is anxious about the fat that many of her friends tell her that there knees feel like a normal knee but hers does not feel like a normal knee because of the symptoms she describes above. I reviewed her x-rays from October 19, 2022 which demonstrate vanguard cemented cruciate retaining total knee arthroplasty with components in normal alignment anatomic axis 5.5 of valgus. Tibial slope is 7 posterior which is recommended slow for cruciate retaining tibial component. Patellar tracking is central. There are no bone cement radiolucencies and there is central patellar tracking. No radiographic complications. Jose Luis Andrea MD [address] [place] [address], [place] [address], [place], [address], [facility] 01/05/2023 16:03:16 OBGyn Episode No OBEpisode recorded.
--- OUTSIDE RECORDS SUMMARY | 2024-06-23 08:40 | XMS_ITS | Clinical Summary ---
Author Organization [facility] Address [address] [place] [address] Care Team Providers Care Leno Sewer Name Role Phone Randy Us MD Primary Care Provider [phone] Allergies No known active allergies Medications FLUoxetine (PROzac) 20 mg tablet Take 20 mg by mouth daily. Active atorvastatin (LIPITOR) 20 mg tablet Take 20 mg by mouth daily with supper. Active aspirin (ECOTRIN EC) 81 mg Tablet, Delayed Release (E.C.) Take 81 mg by mouth daily. 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 Fibrocystic breast changes, right 07/29/2018 Atrophy, breast 07/29/2018 Abnormal mammogram of right breast 07/16/2018 Abnormal ultrasound of breast 07/16/2018 Breast signs and symptoms 07/16/2018 Social History Tobacco Use Types Packs/Day Years Used Date Smoking Tobacco: Never Smokeless Tobacco: Never Alcohol Use Standard Drinks/Week Comments Yes 0 (1 standard drink = 0.6 oz pur e alcohol) Comments No Sex and Gender Information Value Date Recorded Sex Assigned at Not on file Legal Sex Female 3:44 PM CDT Gender Identity Not on file Sexual Orientation Not on file Last Filed Vital Signs Vital Sign Reading Time Taken Comments Blood Pressure 114/83 09/04/2018 11:15 AM CDT Pulse 76 09/04/2018 11:15 AM CDT Temperature 37.1 C (98.7 F) 09/04/2018 11:15 AM CDT Respiratory Rate - - Oxygen Saturation 96% 09/04/2018 11:15 AM CDT Inhaled Oxygen Concentration - - Weight 77.6 kg (171 lb) 09/04/2018 11:15 AM CDT Height 152.4 cm (5') 09/04/2018 11:15 AM CDT Body Mass Index 33.4 09/04/2018 11:15 AM CDT Plan of Treatment Health Maintenance Due Date Last Done Comments DTAP/TDAP/TD VACCINES (1 - Tdap) 10/29/1974 COLORECTAL SCREENING 10/29/2000 Colorectal Cancer Screening 10/29/2000 FIT-DNA Q 3 years 10/29/2000 FIT/FOBT Q 1 year 10/29/2000 Flex Sig/CT Colonography Q 5 years 10/29/2000 PNEUMOCOCCAL VACCINE 50+ YEA RS (1 of 1 - PCV) 10/29/2005 ZOSTER VACCINE (1 of 2) 10/29/2005 BREAST CANCER SCREENING 07/23/2019 07/23/19 19, 05/07/2018, 04/18/2018 OSTEOPOROSIS SCREENING 10/29/2020 INFLUENZA VACCINE (#1) 2023 RSV VACCINE (60+ or ) (1 - 1-dose 75+ series) 10/29/2030 Procedures Procedure Name Priority Date/Time Associated Diagnosis Comments MAMMO DIAG UNI LEFT 3D NELI W OR WO CAD Routine 07/22/2018 Abnormal mammogram of right breast from Last 3 Months or Most Recently Relevant to Health Maintenance Results * MAMMO DIAG UNI LEFT 3D NELI W OR WO CAD (07/22/2018) Anatomical Region Laterality Modality Breast Left Mammography Tatiana Hendricks DO MAMMO ORDERABLES Final Resu lt from Last 3 Months or Most Recently Relevant to Health Maintenance Insurance Care Teams Leno Sewer Relationship Specialty Start Date End Date Randy Us MD [address] [place] [address] PCP - General Family Practice 07/16/18
--- OUTSIDE RECORDS SUMMARY | 2024-06-23 08:40 | XMS_ITS | Data Portability ---
Author Organization [facility] Address [address] [place] [address] Care Team Providers Care Shipping And Receiving Operator Name Role Phone DARIUS RIZZO Primary Care Provider Assessment Encounter Date Assessment Date Assessment LastModified by Organization Details LastModified Time 09/02/2019 09/02/2019 Annual gynecological exam performed. Patient will come back in a year unless there are new symptoms. pt primary physician retired, trying to make appt with a new one, refill with 1 additional refill, mammogram and bone density order given, colonoscopy up to date Not available 09/02/2019 12:31:26 09/07/2020 09/07/2020 Annual gynecological exam performed. Patient will come back in a year unless there are new symptoms. Suggest Calcium with Vitamin D if not eating in diet. Patient advised to get annual flu shot. Recommend yearly physicals and preform monthly breast exams. Genetic testing is available for patients with family history of cancer. Engage in safe sexual practices, use condoms. Encouraged to have daily exercise. Avoid tobacco and illicit drugs, moderation of alcohol. If BMI greater than 25 dietary consult advised. If you have any questions please call or email. [email or web address] Not available 09/07/2020 16:06:51 10/13/2021 10/13/2021 Annual gynecological exam performed. Patient will come back in a year unless there are new symptoms. Suggest Calcium with Vitamin D if not eating in diet. Patient advised to get annual flu shot. Recommend yearly physicals and perform monthly breast exams. Genetic testing is available for patients with family history of cancer. Engage in safe sexual practices, use condoms. Encouraged to have daily exercise. Avoid tobacco and illicit drugs, moderation of alcohol. If BMI greater than 25 dietary consult advised. If you have any questions please call or email. mammogra and dexa given ,reviewed pap guidelines and deferred Not available 10/13/2021 13:02:19 11/23/2022 11/23/2022 Annual gynecological exam performed. Patient will come back in a year unless there are new symptoms. Suggest Calcium with Vitamin D if not eating in diet. Patient advised to get annual flu shot. Recommend yearly physicals and preform monthly breast exams. Genetic testing is available for patients with family history of cancer. Engage in safe sexual practices, use condoms. Encouraged to have daily exercise. Avoid tobacco and illicit drugs, moderation of alcohol. If BMI greater than 25 dietary consult advised. If you have any questions please call or email. [email or web address] Not available 11/23/2022 12:03:41 Plan of Treatment Reminders Order Date Submit Date Provider Last Modified By Organization Details Last Modified Time Details Appointments [facility] 2024 03:15P Rox Self CNM Not available Not available Not available Lab None recorded. Referral None recorded. Procedures None recorded. Surgeries None recorded. Imaging None recorded. Medication Orders fluoxetin e 20 mg capsule 2022 [address]23 [place] [id number], [address], 11/23/2022 12:04:09 fluoxetin e 20 mg capsule 2020 021 [place] [facility] [id number] [address] [place], [address], 09/07/2020 16:05:52 atorvasta tin 20 mg tablet 2019 020 [facility], [address] [place] [address], [id number], 09/02/2019 12:29:51 Prozac 20 mg capsule 2019 020 [facility], [address] [place] [address], [id number], 09/02/2019 12:30:20 Patient TargetsNo targets recorded. Patient Instructions Encounter Date Encounter Id Patient Instructions Last Modified By Organization Details Last Modified Time 09/02/2019 [id number] Suggest Calcium with Vitamin D if not eating in diet. Patient advised to get annual flu shot. Recommend yearly physicals and preform monthly breast exams. Genetic testing is available for patients with family history of cancer. Engage in safe sexual practices, use condoms. Encouraged to have daily exercise. Avoid tobacco and illicit drugs, moderation of alcohol. If BMI greater than 25 dietary consult advised. If you have any questions please call or email. Not available 09/02/2019 12:31:30 Reason for Referral None Reported. Results Created Date Observation Date Name Description Value Unit Range Abnormal Flag Note LastModifiedBy Organization Detail LastModifiedTime 09/02/1909/04/2019 pap, LB Pap test thin prep Negati ve for Intrae pithel ial Lesion or Malign adela normal ACCES UGO #: [id number] Sourc e: Cervi link/E ndoce rvica l LMP: 1999 Date Taken : 09/01 Speci men Type: ThinP rep Vial Date Repor ale: 2019 Clini link Data: Cytot ech: Fady el Beu CT( CP) Date Repor ale: 2019 Speci men Adequ acy: Satis facto ry for evalu ation Gener al Categ oriza tion: NEGAT REHANA FOR INTRA EPITH ELIAL LESIO N OR MALIG VENU Inter preta tion/ Resul t: Atrop hy This speci men has been valerie zed by the ThinP rep Imagi ng Syste m, an inter activ e compu ter syste m which jasmin ts the lab in the scree kelly of ThinP rep Pap Test slide s. Follo wing imagi ng, the slide was revie wed by a Cytot echno logis t and/o r Patho logis t. D N A A S S A Y S R E P O R T TEST NAME RESUL TS ----- ---- ----- -- HPV High Risk Josefina collier (TMA) ThinP rep Vial The human papil lomav irus (HPV) High Risk Josefina collier is an FDA-a pprov ed in-vi tro ampli fied nucle ic acid test for the quali tativ e detec tion of E6/E7 viral mRNA. Resul ts shoul d be corre lated with patie nt prese ntati on, histo ry, cervi link cytol ogy and other clini link and labor atory findi ngs. See https ://[facility]/s ites/ defau lt/fi -0 3AW- [id number] _002_ 01.pd f for furth er infor matio n. Test perfo rmed by [employer] [facility], d/b/a [facility], [address], [place] [address] , Annita Castillo ra, DO, Labor atory Dire tor. HPV High Risk *HPV NOT DETEC ALE (TYPE S 16, 18, 31, 33, 35, 39, 45, 51, 52, 56, 58, 59, 66, 68) *HPV: The human papil lomav irus (HPV) High Risk Josefina collier is an FDA-a pprov ed in-vi tro ampli fied nucle ic acid test for the quali tativ e detec tion of E6/E7 viral mRNA. Resul dulce maria holm d be corre lated with patie nt prese ntati on, histo ry, cervi link cytol ogy and other clini link and labor atory findi ngs. See https ://[facility]/s ites/ defau /fi -0 /- [id number] _002_ 01.pd f for furth er infor matio n. Test perfo rmed by [employer] [facility], d/b/a [facility], [address], [place] [address] , Annita Castillo ra, DO, Labor atory Dire tor. End of t Techn ical servi leonard provi ded by [employer] [facility] logis [facility], d/b/a [facility], [address] [place] [address] Renato Madden MD, Labor atory Dire tor. Case revie wed and diagn osis rende red at [facility], d/b/a Jon lam[facility]josi, [address] , [place] [address] Renato Madden MD, [facility]. CONFI DENTI AL Not Available [facility]) [address], [place], [address], 09/04/2019 16:25:48 09/02/19 20 09/04/2019 HPV DNA, high- risk HPV high risk NOT DETECT ED normal Not Available [facility] ([facility]) [address] [facility] [address], [place], [address], 09/04/2019 16:25:48 09/08/19 21 09/07/2020 IMAGE GUIDE D PAP AND HPV REGAR DLESS image guided Pap, HPV regardless of Pap result SEE RESULT S BELOW CASE REPOR T: Cytol ogy Gynec ologi link Repor t Case: [id number] Autho sunny tay Provi rajesh: Lisbeth Ohara NP Colle cted: 09/07 1731 Order ing Locat ion: [place] Path[facility] log[facility] Recei vidhya: 09/08 0432 First Scree n: Strut z, Willi am, CT Speci men: Scree kelly Pap - Image d, Cervi x STATE MENT OF ADEQU ACY: Satis facto ry for evalu ation Trans forma tion zone compo nent canno t be defin itive ly ident ified due to the prese nce of atrop hy or other hormo nal manriquez es FINAL DIAGN OSIS: Negat rehana for Intra epith elial Lesio n or Francisco wilkinson (NIL) Atrop hic cell josesito zhu Elect emmie raphael ariadna d by Strut z, Willi am, CT on 2020 at 1:09 PM ----- ----- ----- ----- ----- ----- ----- ----- ----- ----- ----- ----- ----- ----- ----- ----- ----- ---- HPV RESUL TS: HPV mRNA E6/E7 : No HPV mRNA Detec ale NOTE: This high risk HPV mRNA assay detec ts fourt een high- risk HPV types (16, 18, 31, 33, 35, 39, 45, 51, 52, 56, 58, 59, 66, 68) witho ut diffe renti ation . CHART ABLE COMME NT: Note: This speci men was revie wed by a Cytot echno logis t and/o r Patho logis t (as indic ated in this repor t) after evalu ation using the Thinp rep Imagi ng Syste m. CLINI LINK INFOR MATIO N: Menst rual Statu s: LMP (if appli cable ): Clini link Histo ry/Pr eviou s Pap: Type of Neopl lai (if appli cable ): Signi fican t Clini link Findi ngs: Other Histo ry: Hormo leah (if appli cable ): PAP EDUCA HARPREET L NOTE: The Pap Test is a scree kelly test with an inher ent false negat rehana rate. Liqui d-bas e sampl ing may decre ase, but will not elimi lisa, false negat rehana resul ts. A negat rehana resul t does not precl ude the prese nce and/o r devel opmen t of disea se, since the prese nce of abnor mal cells in the sampl e depen ds on the locat ion of the lesio n and sampl ing techn ique. Colt nued regul ar scree kelly is the best metho d of cance r preve ntion . If repor ale cytol ogic findi ng do not corre late with physi link and/o r histo rical findi ngs, furth er inves tigat ion is recom lui d, as clini timothy graham nted. Not Available [facility] (Lab) [address], [place], [address], 09/09/2020 14:11:37 11/24/19 23 11/23/2022 IMAGE GUIDE D PAP AND HPV REGAR DLESS image guided Pap, HPV regardless of Pap result SEE RESULT S BELOW CASE REPOR T: Cytol ogy Gynec ologi link Repor t Case: [id number] Autho sunny tay Provi rajesh: Lisbeth Ohara NP Colle cted: 11/23 1604 Order ing Locat ion: [place] Patho logy Recei vidhya: 11/24 0301 First Scree n: Kojo cm, Kyra beatty, CT Speci men: Scree kelly Pap - Image d, Cervi x STATE MENT OF ADEQU ACY: Satis facto ry for evalu ation Trans forma tion zone compo nent canno t be defin itive ly ident ified due to the prese nce of atrop hy or other hormo nal manriquez es FINAL DIAGN OSIS: Negat rehana for Intra epith elial Leshellen collier or Francisco wilkinson (NIL) . Atrop hic cell josesito zhu. Tommy raphael ariadna d by Kojo cm, Kyra beatty, CT on 11/27 at 6:33 PM ----- ----- ----- ----- ----- ----- ----- ----- ----- ----- ----- ----- ----- ----- ----- ----- ----- ---- HPV RESUL TS: HPV mRNA E6/E7 : No HPV mRNA Detec ale NOTE: This high risk HPV mRNA assay detec ts fourt een high- risk HPV types (16, 18, 31, 33, 35, 39, 45, 51, 52, 56, 58, 59, 66, 68) witho ut diffe renti ation . COMME NT: This speci men was revie wed by a Cytot echno logis t and/o r Patho logis t (as indic ated in this repor t) after evalu ation using the Thinp rep Imagi ng Syste m. CLINI LINK INFOR MATIO N: Menst rual Statu s: LMP (if appli cable ): Clini link Histo ry/Pr eviou s Pap: Type of Neopl lai (if appli cable ): Signi fican t Clini link Findi ngs: Other Histo ry: Hormo leah (if appli cable ): PAP EDUCA HARPREET L NOTE: The Pap Test is a scree kelly test with an inher ent false negat rehana rate. Liqui d-bas ed sampl ing may decre ase, but will not elimi lisa, false negat rehana resul ts. A negat rehana resul t does not precl ude the prese nce and/o r devel opmen t of disea se, since the prese nce of abnor mal cells in the sampl e depen ds on the locat ion of the lesio n and sampl ing techn ique. Colt nued regul ar scree kelly is the best metho d of cance r preve ntion . If repor ale cytol ogic findi ng do not corre late with physi link and/o r histo rical findi ngs, furth er inves tigat ion is recom lui d, as clini timothy warra nted. Not Available [facility] (Lab) [address] [facility], [place], [address], 11/27/2022 19:37:12 10/01/19 20 10/01/2019 MAMMO , scree kelly, bilat eral No observ ation record ed. [facility] (Imaging) [address] [place] [address], [id number], 10/05/2019 12:32:41 10/01/19 20 10/01/2019 DEXA No observ ation record ed. [address], [address], 10/05/2019 12:32:58 10/05/19 21 10/04/2020 MAMMO , scree kelly, bilat eral No observ ation record ed. [address], [address], 10/04/2020 14:11:54 01/07/20 22 01/05/2022 MAMMO , scree kelly, bilat eral No observ ation record ed. [facility] [address], [place], [address], 01/06/2022 20:08:05 05/02/19 24 05/01/2023 MAMMO , scree kelly, bilat eral No observ ation record ed. [email or web address], [place], [address], 05/02/2023 16:21:09 Result Notes None recorded. Problems Name Problem SNOMED Code Status Onset Date Resolution Date Notes Provider Name and Address Organization Details Recorded Time Adult health examinat ion Completed 201009/07/2020 Routine Medical Exam;Rec orded Elsewher e: No Locat ion: [facility] S ource: EHR Wallpaper Inspector aust[place]: N Kalee ce ID: [id number] Saturnino lable Time: 03:45:00 PM Jes murrell [facility] 1 15:48:23 Screenin g for malignan t neoplasm of rectum Completed 201609/07/2020 Encounte r for screenin g for malignan t neoplasm of rectum;R ecorded Elsewher e: No Locat ion: [facility] S ource: EHR Wallpaper Inspector aust[place]: N Kalee ce ID: [id number] Saturnino lable Time: 02:15:00 PM Jes murrell [facility] 15:48:35 Screenin g for malignan t neoplasm of cervix Completed 201609/07/2020 Screenin g for malignan t neoplasm s of the cervix;R ecorded Elsewher e: No Locat ion: [facility] S ource: EHR Wallpaper Inspector aust[place]: N Kalee ce ID: [id number] Saturnino lable Time: 02:15:00 PM Jes murrell [facility] 15:48:[address] Concept Completed 201609/07/2020 Encntr for general adult medical exam w/o abnormal findings ;Recorde d Elsewher e: No Locat ion: Kristan joshi [facility] S ource: EHR Wallpaper Inspector austin: N Hernestoti ce ID: [id number] Saturnino lable Time: 02:15:[address] [facility] 15:48:37 Body mass index 30+ - obesity [id number] Completed 201609/07/2020 Body mass index (BMI) 36.0-36. 9, adult;Re corded Elsewher e: No Locat ion: Kristan joshi [facility] S ource: EHR Wallpaper Inspector austin: N Practi ce ID: [id number] Saturnino lable Time: 02:15:[address] [facility], [facility] 15:48:[address] Concept Completed 201509/07/2020 Encntr for counseling services manager exam (general ) (routine ) w/o abn findings ;Recorde d Elsewher e: No Locat ion: Britneyarthur madelyn [facility] S ource: EHR Wallpaper Inspector aust[place]: N Practi ce ID: [id number] Saturnino lable Time: 04:45:[address] [facility] 15:48:39 Evaluati on finding [id number] Completed 201809/07/2020 Oth abn and inconclu sive findings on dx imaging of breast;R ecorded Elsewher e: No [facility]: EHR Wallpaper Inspector [place]: N Practi ce ID: [id number] Saturnino lable Time: 04:00:[address] [facility] 15:48:29 Amenorrh ea [id number] Completed 201009/07/2020 Absence of menstrua tion;Rec orded Elsewher e: No Locat ion: Kristan joshi [facility] S ource: EHR Wallpaper Inspector austin: N Practi ce ID: [id number] Saturnino lable Time: 03:45:00 PM Jes murrell [facility] 15:48:25 Speciali zed medical examinat ion Completed 201009/07/2020 Routine gynecolo gical examinat ion;Prac valeria ID: [id number] Jes murrell [facility] 15:48:41 Obesity [id number] Completed 201409/07/2020 Obesity, unspecif ied;Prac valeria ID: [id number] [facility] 15:48:31 Problem Notes None recorded. Procedures Surgical History Date Name Laterality Status Provider Name and Address Organization Details Recorded Time 11/24/19 23 Date of Last Pap Smear completed Jes Harley [facility] 11/23/2022 11:47:26 11/12/19 22 [facility]roscopy[facility] 11/23/2022 11:48:10 10/05/19 21 Date of Last Mammogram completed Jes Harley [facility] 10/13/2021 12:44:06 08/12/19 19 completed Jes Harley [facility] 09/07/2020 15:50:02 08/12/19 19 Colonoscopy completed Jes Harley [facility] 09/07/2020 15:49:47 02/11/19 19 mammography and biopsy of right breast completed Jes Harley [facility] 09/02/2019 17:18:30 02/11/19 16 Colonoscopy completed Jes Harley [facility] 09/07/2020 15:49:43 02/11/19 16 cardiac catheterization completed Jeschelsea Harley [facility] 09/02/2019 17:16:54 01/01/20 03 mammography and biopsy of right breast completed [facility] 09/02/2019 17:18:27 02/11/18 98 section completed [facility] 09/02/2019 17:17:22 02/11/18 98 ligation of bilateral fallopian tubes completed [facility] 09/02/2019 17:17:51 02/11/18 95 section completed [facility] 09/02/2019 17:17:14 Imaging Results Imaging Date Name Status LastModified by Organiz ation Details LastModified Time 10/01/2019 MAMMO, screening, bilateral completed [facility] (Imaging) [address] [place] [address], [phone], 10/05/2019 12:32:41 10/01/2019 [facility] [address], [address], 10/05/2019 12:32:58 10/04/2020 MAMMO, screening, bilateral active [address], [address], 10/04/2020 14:11:54 01/05/2022 MAMMO, screening, bilateral active [address], [address], 01/06/2022 20:08:05 05/01/2023 MAMMO, screening, bilateral completed [address], [address], 05/02/2023 16:21:09 Procedure Notes None recorded. Medical Equipment None Reported. Allergies No known drug allergies Medications Name Sig Start Date Stop Date Status Note LastModified by Organization Details LastModified Time atorvasta tin 20 mg tablet TAKE 1 TABLET BY MOUTH EVERY DAY AT BEDTIME active Not Available Not Available No t Available aspirin 325 mg tablet TAKE 1 TABLET BY MOUTH TWICE A DAY FOR 20 DAYS active Not Available Not Available No t Available meloxicam 15 mg tablet active Not Available Not Available Not Available tramadol 50 mg tablet TAKE 1 TABLET BY MOUTH EVERY 8 HOURS NEEDED FOR PAIN active Not Available Not Available No t Available methylpre dnisolone 4 mg tablets in a dose pack active Not Available Not Available Not Available Prozac 10 mg capsule take 2 capsule by oral route every day 01/01 completed Prescrib ed Elsewher e: Yes Loca tion: [facility] odify By: miguel Decker unter DateTime : 12/29/19 11 03:45:00 PM Not Available Not Available Not Available Vitamin D2 1,250 mcg (50,000 unit) capsule take 1 capsule (09595LY ITS) by oral route every week 02/17 completed Prescrib ed Elsewher e: No Locat ion: [facility] odify By: lorri nicholson DateTime : 03/04/19 14 09:49:43 AM Not Available Not Available Not Available Lipitor 10 mg tablet take 1 tablet by oral route every day 09/07 completed Prescrib ed Elsewher e: Yes Loca tion: [facility] odify By: austin gutierrez DateTime : 03/07/19 19 04:00:00 PM Not Available Not Available Not Available fluoxetin e 20 mg capsule TAKE 1 CAPSULE BY MOUTH DAILY 2024 active Not Available Not Available Not Avai lable naproxen 500 mg tablet active Not Available Not Available Not Available cyclobenz aprine 5 mg tablet active Not Available Not Available No t Available Lipitor 09/07 completed Not Available Not Available Not Available Prozac 09/07 completed Not Available Not Available Not Available Suprep Bowel Prep Kit 17.5 gram-3.13 gram-1.6 gram oral solution 09/07 completed Not Available Not Available Not Available Gelsyn-3 16.8 mg/2 mL intra-art icular syringe active Not Available Not Available Not Available Flublok Quad (PF) 180 mcg (45 mcg x 4)/0.5 mL IM syringe PHARMACY ADMINIST ERED active Not Available Not Available No t Available Paxlovid 300 mg (150 mg x 2)-100 mg tablets in a dose pack PLEASE SEE ATTACHED FOR DETAILED DIRECTIO NS active Not Available Not Available No t Available Vitals Date Recorded Body height Body mass index (BMI) Body weight Systolic blood pressure Diastolic blood pressure Provider Name and Address Organization Details Last Updated DateTime 09/07/2020 151.13 cm 33.8 kg/m2 59313.7 g 143 mm[Hg] 90 mm[Hg] Jes Harley [facility] 1 15:47:22 Date Recorded Body height Body mass index (BMI) Body weight Systolic blood pressure Diastolic blood pressure Provider Name and Address Organization Details Last Updated DateTime 10/13/2021 151.13 cm 35.9 kg/m2 87394.22 g 128 mm[Hg] 85 mm[Hg] Jes Harley [facility] 2 12:43:02 Date Recorded Body height Body mass index (BMI) Body weight Systolic blood pressure Diastolic blood pressure Provider Name and Address Organization Details Last Updated DateTime 09/02/2019 149.23 cm 36.1 kg/m2 93997.85 g 144 mm[Hg] 83 mm[Hg] Jes Harley [facility] 0 12:21:20 Date Recorded Body height Body mass index (BMI) Body weight Systolic blood pressure Diastolic blood pressure Provider Name and Address Organization Details Last Updated DateTime 11/23/2022 151.13 cm 35.3 kg/m2 85564.44 g 128 mm[Hg] 84 mm[Hg] Jes Harley [facility] 3 11:46:45 Social History Question Answer Notes LastModified by Organizat ion Details LastModified Time Tobacco Smoking Status Never Smoker Jes Harley [facility] 10/13/2021 12:44:06 Are You Blind Or Do You Have Difficulty Seeing? No [email or web address] Information n ot available 09/07/2020 What Is Your Level Of Caffeine Consumption? Moderate Information not available 10/13/2021 In The 14 Days Before Symptom Onset, Have You Had Close Contact With A Laboratory-confirm ed COVID-19 While That Case Was Ill? No [email or web address] Information n ot available 09/07/2020 In The 14 Days Before Symptom Onset, Have You Had Close Contact With A Person Who Is Under Investigation For COVID-19 While That Person Was Ill? No [email or web address] Information not available 09/07/2020 Have You Been To An Area Known To Be High Risk For COVID-19? No [email or web address] Information not available 09/07/2020 Are You Deaf Or Do You Have Serious Difficulty Hearing? No [email or web address] Information not available 09/07/2020 What Type Of Diet Are You Following? REGULAR [email or web address] Information n ot available 09/07/2020 Which Illicit Or Recreational Drugs Have You Used? None [email or web address] Information not available 10/13/2021 What Is The Highest Grade Or Level Of School You Have Completed Or The Highest Degree You Have Received? [id number] [email or web address] Information not available 10/13/2021 Are There Any Guns Present In Your Home? No [email or web address] Information not available 10/13/2021 What Was The Date Of Your Most Recent Tobacco Screening? 11/23/2022 [email or web address] Information not available 11/23/2022 Have You Ever Been Counseled For Unhealthy Alcohol Use? No [email or web address] Information not available 10/13/2021 Do You Use Your Seat Belt Or Car Seat Routinely? Yes [email or web address] Information not available 09/07/2020 Do You Have Smoke And Carbon Monoxide Detectors In Your Home? Yes [email or web address] Information not available 09/07/2020 How Much Tobacco Do You Smoke? No [email or web address] Information not available 09/02/2019 Do You Use Sunscreen Routinely? Yes [email or web address] Information not available 09/07/2020 Has Tobacco Cessation Counseling Been Provided? No [email or web address] Information not available 10/13/2021 Have You Used IV Drugs? No [email or web address] Information not available 10/13/2021 Sex: Unknown Functional Status Question Answer Note LastModified by Organizat ion Details LastModified Time Do you use any illicit or recreational drugs? No Information not available 09/07/2020 Do you or have you ever used any other forms of tobacco or nicotine? No [email or web address] Information not available 10/13/2021 What is your level of alcohol consumption? Occasional [email or web address] Information not available 09/02/2019 Do you or have you ever used smokeless tobacco? Never used smokeless tobacco [email or web address] Information not available 10/13/2021 Do you have difficulty walking or climbing stairs? No [email or web address] Information not available 10/13/2021 Are you able to walk? YESWOREST [email or web address] Information not available 09/07/2020 Are you able to care for yourself? Yes [email or web address] Information not available 10/13/2021 What is your occupation? Retired [email or web address] Information not available 10/13/2021 Do you have difficulty dressing or bathing? No [email or web address] Information not available 10/13/2021 Do you or have you ever used e-cigarettes or vape? Never used electronic cigarettes [email or web address] Information not available 10/13/2021 What is your exercise level? Occasional [email or web address] Information not available 09/02/2019 Mental Status Question Answer Note LastModified by Organization D etails LastModified Time Do you feel stressed (tense, restless, nervous, or anxious, or unable to sleep at night)? [id number] [email or web address] Information not available 09/07/2020 Family History Relationship Description Onset Age of this Age Resolved Age Notes LastModified by Organization Details LastModified Time Sister Disorder of thyroid gland [email or web address] Not available 09/01 17:14:34 Brother Asthma [email or web address] Not availabl e 09/02/2019 17:14:40 Mother Diabetes mellitus Not available 09/01 17:14:56 Mother Depressive disorder [email or web address] Not available 09/01 17:15:07 Mother Anxiety disorder [email or web address] Not available 09/01 17:15:15 Mother Hypertensive disorder Not available 09/01 17:15:27 Mother Malignant tumor of kidney [email or web address] Not available 2021 12:31:10 Father Diabetes mellitus Not available 09/01 17:14:56 Father Bipolar disorder [email or web address] Not available 2021 12:31:10 Notes:Brother: Asthma Father : Diabetes mellitus, Mental illness Mother: Diabetes mellitus, Mental illness, Hypertension, kidney cancer Sister: Thyroid disease Medical History Condition Response Other N Blood Transfusion N Dermatologic Disorders N Gestational Diabetes N Anxiety Disorder Y Autoimmune disease N Arthritis N Polyps N Infertility N Acid Reflux (GERD) N Cancer N Varicosities N Stroke N Neurologic/Epilepsy N Fibromyalgia N Headaches N Kidney Disease N Heart Problems Y Kidney or Bladder Problems N Eating Disorder N Art (IVF or FET) N Hepatitis/Liver Disease N No Past Medical History N Urinary Tract Infection N Asthma N Trauma/Violence N Thrombophilias N Allergies (Food, seasonal, environmental ) N Breast Cancer N Drug/Latex Allergies/Reactions N Lung Disease N Defects or Inherited Disease N Breast Problem N Hematologic disorders N Anesthesia Complications N History of STI N Deep Vein Thrombosis N Polycystic ovary syndrome N History of abnormal pap N Endometriosis N High Cholesterol Y Thyroid Problems N GI Problems N Anemia N Psychiatric Illness N Ovarian Cancer N Diabetes N Pulmonary (TB, Asthma) N Eczema N Abuse/Domestic Violence N Depression/ depression Y Heart Disease N Pre-Eclampsia N Hypertension N Osteoporosis N Gynecological History Statement/Question Response Date of Last Mammogram 10/04/2020 Date of LMP 02/11/1999 On BCP's at Conception? N N STIs/STDs N HPV Vaccine N Current Control Method Tubal Ligat ion Age at First Child 38 Date of Last Colonoscopy Sexually Active? Y Age of first menstrual cycle 13 Date of Last Pap Smear 11/23/2022 Sexual Problems? N LMP Approximate 08/11/2018 N Obstetrics History GPAL:G 2 P 2 0 0 2 Type Value Full Term 2 Living 2 Total 2 Past Encounters Encounter ID Performer Location Encounter Start Date Encounter Closed Date Diagnosis/Indication Diagnosis SNOMED-CT Code Diagnosis ICD10 Code Diagnosis Note [id number] Lisbeth Self CNM [facility] [address] [address] 09/02/2019 12:01:46 09/02/2019 12:33:37 Hypercholesterolemia 78506120 E78.00 Depressive disorder 3548 9007 F32.9 Gynecologi c examination 39268620 Z01.419 [id number] Lisbeth Self CNM [facility] [address] [address] 09/07/2020 15:34:09 09/07/2020 16:19:31 Anxiety 32786652 F41.9 Gynecologi c examination 41259248 Z01.419 [id number] Lisbeth Self [facility] [address] [address] 10/13/2021 12:30:54 10/13/2021 14:02:51 Gynecologic examination 25495377 Z01.419 Z11.51 [id number] Lisbeth Self [facility] [address] [address] 11/23/2022 11:12:09 11/23/2022 12:07:41 Gynecologic examination 98680597 Z01.419 Z11.51 Abnormal v asomotor function 46868857 I73.89 Health Concerns Section Related Observation LastModified by Organization Detai ls LastModified Time None Recorded Concern Status LastModified by Organization Details LastModified Time None Recorded Advance Directives Directive None Recorded Payers Encounter Date Sequence Insurance Name Policy Number Policy Ram Covered Member ID Ram Member ID Guarantor Name 09/02/2019 1 [facility] [id number] Mallika Ashley [id number] Mallika Ashley 09/07/2020 1 [employer] - DOS PRIOR TO 20 - [facility] [employer] [facility] [id number] Mallika Sadi [id number] Mallika Ashley 10/13/2021 1 [facility] [id number] Mallika Ashley [id number] Mallika Ashley 11/23/2022 1 [employer] (MEDICARE REPLACEMENT PPO) [id number] Mallika Ashley [id number] Mallika Sadi Notes Date Note Type Note Provider Name and Address Organization Details Recorded Time 09/02/2019 text/html Annual GYNReport ed bypatient.Breast:N o breast pain; No breast lump; No nipple discharge Sexual complaints:No sexual complaints; No pain during intercourse; Normal libido Menopausal Symptoms:No menopausal symptoms; Normal vaginal lubrication Psychological symptoms:No depression; No anxiety; No PMDDNotes:does SBE, had bipsy for clogged duct marker placed would like pap this year, had colonoscopy walks couple miles daily Lisbeth Self CNM [address], [place], [address], [facility] 09/02/2019 12:33:29 09/07/2020 text/html Annual GYNReport ed bypatient.Breast:N o breast pain; No breast lump; No nipple discharge Sexual complaints:No sexual complaints; No pain during intercourse; Normal libido Menopausal Symptoms:No menopausal symptoms; Normal vaginal lubrication Psychological symptoms:No depression; No anxiety; No PMDD Preventive measures:Encourage self breast examination; Encourage regular exercise; Encourage no tobacco use; Encourage regular mammograms starting age 40Notes:pt would like pap this year, due for mammogram, up to date on dexa and colonoscopy Lisbeth Self CNM [address], [place], [address], [facility] 09/07/2020 16:07:21 10/13/2021 text/html Annual GYNReport ed bypatient.History: no gynecologic complaints Menstrual cycle:menopausal Urinary symptoms:No hematuria; No incontinence Breast:No breast pain; No breast lump; No nipple discharge Sexual complaints:No sexual complaints; No pain during intercourse; Normal libido Menopausal Symptoms:No menopausal symptoms; Normal vaginal lubrication Psychological symptoms:No depression; No anxiety; No PMDD Preventive measures:Encourage self breast examination; Encourage regular exercise; Encourage no tobacco use; Up to date on colonoscopy screeningNotes:due for dexa scan has mammogram scheduled Lisbeth Self CNM [address], [place], [address], [facility] 10/13/2021 13:02:26 11/23/2022 text/html Annual GYNReport ed bypatient.History: no gynecologic complaints Menstrual cycle:no cycles Urinary symptoms:No hematuria; No incontinence Vulva:No genital lesion Vagina:Normal vaginal discharge Breast:No breast pain; No breast lump; No nipple discharge Sexual complaints:No sexual complaints; No pain during intercourse; Normal libido Menopausal Symptoms:No menopausal symptoms; Normal vaginal lubrication Psychological symptoms:No depression; No anxiety; No PMDD Preventive measures:Encourage self breast examination; Encourage regular exercise; Encourage no tobacco use; Needs to schedule mammogram; Up to date on colonoscopy screeningNotes:new mcdaniel well going on a cruise this next year, went to [place] and [place] since last visithad right knee replacement Lisbeth Self, JULIAN [address], [place], [address], [place] [facility] 11/23/2022 12:05:44 OBGyn Episode Ob Episode Information Episode Created Date Number of Fetuses Patient Bloodtype Patient rh Status Prepregnancy Weight lbs Domestic Partner Domestic Partner Phone Father Name Rubber Grinder Status 09/02/19 20 1 CLOSED Fetus Data First Name Last Name Admitted to NICU Weight (g) Sex Living Outcome Pediatric Complications Fetus ID Race Codes Race Delivery Type 3628.73 6 F Full Term 3091 Repeat Sen Calculation Initial Sen Date Initial Exam Date Initial Exam Provider Initial Ultrasound Date Last Menstrual Period Date Ultra Sound Weeks Gestation 0 Eighteen To Twenty Week Sen Update Ultra Sound Date Fundal Height At Umbil Quickening Date Ultra Sound Latest Weeks Gestation Final Sen Confirmed By Final Sen Confirmed Date Final Sen Date Ultra Sound Latest Days Gestation 0 0 Menstrual History Last Menstrual Date Menses Monthly On Bcp Conception Prior Menses Frequency Hcg Plus Date Menarche Onset Age Delivery Information Delivery Date Delivery Type Labor Anesthesia Weeks Gestation Incision Type Labor Labor Length Hrs Delivered By Post Complications Tubal Sterilization Discharge Date Comments 8 Discharge Information Feeding Method Contraceptive Method Maternal HG B and HCT Levels Ob Episode Information Episode Created Date Number of Fetuses Patient Bloodtype Patient rh Status Prepregnancy Weight lbs Domestic Partner Domestic Partner Phone Father Name Rubber Grinder Status 09/02/19 20 1 CLOSED Fetus Data First Name Last Name Admitted to NICU Weight (g) Sex Living Outcome Pediatric Complications Fetus ID Race Codes Race Delivery Type 3118.44 5 M Full Term 3090 Primary Sen Calculation Initial Sen Date Initial Exam Date Initial Exam Provider Initial Ultrasound Date Last Menstrual Period Date Ultra Sound Weeks Gestation 0 Eighteen To Twenty Week Sen Update Ultra Sound Date Fundal Height At Umbil Quickening Date Ultra Sound Latest Weeks Gestation Final Sen Confirmed By Final Sen Confirmed Date Final Sen Date Ultra Sound Latest Days Gestation 0 0 Menstrual History Last Menstrual Date Menses Monthly On Bcp Conception Prior Menses Frequency Hcg Plus Date Menarche Onset Age Delivery Information Delivery Date Delivery Type Labor Anesthesia Weeks Gestation Incision Type Labor Labor Length Hrs Delivered By Post Complications Tubal Sterilization Discharge Date Comments 5 Discharge Information Feeding Method Contraceptive Method Maternal HG B and HCT Levels
--- OUTSIDE RECORDS SUMMARY | 2024-06-23 08:40 | XMS_ITS | Clinical Summary ---
Author Organization [facility] Address [address] [place] [address] Care Team Providers Care Facilities Maintenance Worker Name Role Phone Unavailable Primary Care Provider Unavailabl e Source Comments [facility],non-owned Affiliates and Associated Physician Practices is amultiple site organization consisting of ambulatory clinics and hospital sitesin [place] and [place]. This disclosure is being madepursuant to the Care Everywhere program and may not contain all information available regarding this patient. Last updated 17.[employer] [facility] Allergies No known active allergies Medications * Be aware that medications may not be up to date on this document. Alwaysverify current medications with the patient. 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 Gender Identity Not on file Sexual Orientation Not on file Last Filed Vital Signs Vital Sign Reading Time Taken Comments Blood Pressure 128/84 06/28/2018 11:54 AM CDT Pulse 77 06/28/2018 11:54 AM CDT Temperature 37.4 C (99.3 F) 06/28/2018 11:54 AM CDT Respiratory Rate 16 06/28/2018 11:54 AM CDT Oxygen Saturation 94% 06/28/2018 11:54 AM CDT Inhaled Oxygen Concentration - - Weight 73.5 kg (162 lb) 06/28/2018 11:54 AM CDT Height 152.4 cm (5') 06/28/2018 11:54 AM CDT Body Mass Index 31.64 06/28/2018 11:54 AM CDT Plan of Treatment Health Maintenance Due Date Last Done Comments BONE DENSITY TESTING 1955 COLOGUARD (AGES 45-75) - COL ON CA SCREENING 1955 COLON MONITORING 1955 COLONOSCOPY - COLON CA SCREENING 1955 CT COLONOGRAPHY - COLON CA SCREENING 1955 Colorectal Cancer Screening 1955 FIT - COLON CA SCREENING 1955 FLEX SIG - COLON CA SCREENING 1955 MAMMOGRAM 1955 HEPATITIS C SCREENING 10/25/1973 DTAP/TDAP/TD VACCINES (1 - Tdap) 10/29/1974 PNEUMOCOCCAL VACCINE 50+ (1 of 1 - PCV) 10/29/2005 ZOSTER VACCINE (1 of 2) 10/29/2005 SCREENING FOR DIABETES 06/28/2018 COVID-19 VACCINE (1 - 2023-2 5 season) 2023 DEPRESSION SCREENING 02/12/2024 INFLUENZA VACCINE (Season Ended) 2024 Respiratory Syncytial Virus (RSV) Vaccine Pt: or over 60 yrs (1 - 1-dose 75+ series) 10/29/2030 HEPATITIS B VACCINE Aged Out No longe r eligible based on patient's age to complete this topic HIB VACCINE Aged Out No longer eligi ble based on patient's age to complete this topic HPV VACCINE Aged Out No longer eligi ble based on patient's age to complete this topic MENINGOCOCCAL (Group B) VACC INE SHARED DECISION-MAKING Aged Out No longer eligibl e based on patient's age to complete this topic MENINGOCOCCAL GROUPS A/C/Y/W VACCINE Aged Out No longer eligible b ased on patient's age to complete this topic Insurance [facility]
== END 2024-06-23 08:32 | disposition home or self-care (01) ==
PROVIDERS: PCP Family Medicine; Visit Provider Advanced Practice Midwife
DX: Z12.31 Encounter for screening mammogram for malignant neoplasm of breast (principal); R92.8 Other abnormal and inconclusive findings on diagnostic imaging of breast
CPT/HCPCS: 77063; 77067

== ENCOUNTER 2024-07-28 11:30 | Outpatient (CLI) | payer MEDICARE, SELFPAY ==
--- NOTE | ~2024-07-28 | MMUS_ITS ---
EXAMINATION: MM diagnostic preston LT w shasha, US breast LT limited HISTORY: Follow-up left breast mass TECHNIQUE: Additional 3-D tomosynthesis images of the left breast were performed and synthetic 2-D im ages were generated. CAD analysis was submitted and interpreted. High resolution Limited left breast ultrasound was performed. COMPARISON: Comparison to multiple prior studies sequentially, with oldest reviewed study dated 09/30. BREAST PARENCHYMAL COMPOSITION: Not dense: There are scattered areas of fibroglandular density. FINDINGS: MAMMOGRAPHIC FINDINGS: There is a persistent small mass in the lower central aspect of the left breast, slightly medial, ant erior third. There are no suspicious calcifications or architectural distortion. ULTRASOUND: Limited left breast ultrasound: At 6:00, 4 cm from the nipple there is a 5 mm cyst likely correspondi ng to the mammographic finding. No suspicious masses to suggest malignancy. IMPRESSION: 1. No evidence for malignancy in the left breast. Benign finding. 2. Routine yearly screening mammogram and regular clinical breast examination are recommended. BI-RADS Category 2: Benign finding(s). Reviewed, dictated and finalized at location A. IMPRESSION: 1. No evidence for malignancy in the left breast. Benign finding. 2. Routine yearly screening mammogram and regular clinical breast examination a re recommended. BI-RADS Category 2: Benign finding(s).
--- OUTSIDE RECORDS SUMMARY | 2024-07-28 12:30 | XMS_ITS | Clinical Summary ---
Author Organization [facility] Address [address] [place] [address] Care Team Providers Care Perioperative Educator Name Role Phone Randy Us MD Primary Care Provider [phone] Allergies No known active allergies Medications FLUoxetine [...] Relevant to Health Maintenance Insurance Care Teams Perioperative Educator Relationship Specialty Start Date End Date Randy Us MD [address] [place] [address] PCP - General Family Practice 07/16/18
--- OUTSIDE RECORDS SUMMARY | 2024-07-28 12:30 | XMS_ITS | Data Portability ---
Author Organization [facility] Address [address] [place] [address] Care Team Providers Care Books Salesperson Name Role Phone DARIUS RIZZO Primary Care [...] have any questions please call or email. [email or web address] Not available 09/07/2020 16:06:51 10/13/2021 10/13/2021 Annual [...] have any questions please call or email. [email or web address] Not available 11/23/2022 12:03:41 Plan of Treatment Reminders Order Date Submit Date Provider Last Modified By Organization Details Last Modified Time Details Appointments [facility] 2024 03:15P Rox Self CNM Not available Not available Not available Lab None recorded. Referral None recorded. Procedures None recorded. Surgeries None recorded. Imaging None recorded. Medication Orders fluoxetin e 20 mg capsule 2022 023 [facility] [id number], [address], 11/23/2022 12:04:09 fluoxetin e 20 mg capsule 2020 021 [facility] [address] [address] [place], [address], 09/07/2020 16:05:52 atorvasta tin 20 mg tablet 2019 020 INTERFACE [facility], [address] [place] [address], [address], 09/02/2019 12:29:51 Prozac 20 mg capsule 2019 020 INTERFACE [facility], [address] [place] [address], [address], 09/02/2019 12:30:20 Patient TargetsNo targets recorded. Patient Instructions Encounter Date Encounter Id Patient Instructions Last Modified By Organization Details Last Modified Time 09/02/2019 [id number] Suggest Calcium with Vitamin D if not [...] and labor atory findi ngs. See https ://CompassMD/s ites/ defau lt/fi -0 3AW- 95368 _002_ 01.pd f for furth er infor matio n. Test perfo rmed by [employer] [facility] (formerly [facility]), d/b/a [facility], [address], [place] [address] , Annita Castillo ra, DO, Labor atory [...] and labor atory findi ngs. See https ://CompassMD/s ites/ defau /fi -0 /- 68191 _002_ 01.pd f for furth er infor matio n. Test perfo rmed by [employer] [facility] (formerly [facility]), d/b/a [facility], [address], [place] [address] , Annita Castillo ra, DO, Labor atory Dire tor. End of t Techn ical servi leonard provi ded by [employer] iated Patho logis Post.Bid[facility]Ship, d/b/a [facility], [address] [place] [address] Renato Madden MD, Labor atory Dire tor. Case revie wed and diagn osis rende red at [facility], d/b/a Jon lamarjosi, [address] , [place] [address] Renato Madden MD, [facility]. CONFI DENTI AL Not Available [facility] ([facility]) [address], [place], [address], 09/04/2019 16:25:48 09/02/19 20 09/04/2019 HPV DNA, high- risk HPV high risk NOT DETECT ED normal Not Available [facility] ([facility]) [address], [place], [address], 09/04/2019 16:25:48 09/08/19 21 09/07/2020 IMAGE GUIDE [...] as clini timothy graham nted. Not Available [facility] (Lab) [address], [place], [address], 09/09/2020 14:11:37 11/24/19 23 11/23/2022 IMAGE GUIDE [...] as clini timothy warra nted. Not Available [facility] (Lab) [address] [facility], [place], [address], 11/27/2022 19:37:12 10/01/19 20 10/01/2019 MAMMO , scree kelly, bilat eral No observ ation record ed. [facility] (Imaging) [address] [place] [address], [id number], 10/05/2019 12:32:41 10/01/19 20 10/01/2019 DEXA No observ ation record ed. [address], [address], 10/05/2019 12:32:58 10/05/19 21 10/04/2020 MAMMO , scree kelly, bilat eral No observ ation record ed. [address], [address], 10/04/2020 14:11:54 01/07/20 22 01/05/2022 MAMMO , scree kelly, bilat eral No observ ation record ed. [address] [address], [place], [address], 01/06/2022 20:08:05 05/02/19 24 05/01/2023 MAMMO , scree kelly, bilat eral No observ ation record ed. [address] [facility], [place], [address], 05/02/2023 16:21:09 06/24/19 25 06/23/2024 MAMMO , scree kelyl, digit al, bilat eral No observ ation record ed. [address] [address], [place], [address], 07/02/2024 14:26:46 06/25/19 25 06/23/2024 MAMMO , scree kelly, digit al, bilat eral No observ ation record ed. [address] [address], [place], [address], 07/02/2024 14:27:53 07/29/19 25 07/28/2024 MAMMO , diagn ostic , digit al, unila teral No observ ation record ed. [address] [address], [place], [address], 07/28/2024 13:24:23 Result Notes None recorded. Problems Name Problem SNOMED Code Status Onset Date Resolution Date Notes Provider Name and Address Organization Details Recorded Time Adult health examinat ion Completed 201009/07/2020 Routine Medical Exam;Rec orded Elsewher e: No Locat ion: Kristan [facility] S ource: EHR Juvenile Counselor austin: N Practi ce ID: 0001 Saturnino lable Time: 03:45:00 PM Jes Harley [facility] - [facility] 15:48:23 Screenin g for malignan t neoplasm of rectum Completed 201609/07/2020 Encounte r for screenin g for malignan t neoplasm of rectum;R ecorded Elsewher e: No Locat ion: [facility] S ource: EHR Juvenile Counselor austin: N Hernestoti ce ID: 0001 Saturnino lable Time: 02:15:00 PM Jes Harleymaryellen murrell [facility] 15:48:35 Screenin g for malignan t neoplasm of cervix Completed 201609/07/2020 Screenin g for malignan t neoplasm s of the cervix;R ecorded Elsewher e: No Locat ion: [facility] S ource: EHR Juvenile Counselor austin: N Hernestoti ce ID: 0001 Saturnino lable Time: 02:15:00 PM Jes Harley [facility] 15:48:[address] Concept Completed 201609/07/2020 Encntr for general adult medical exam w/o abnormal findings ;Recorde d Elsewher e: No Locat ion: [facility] S ource: EHR Juvenile Counselor austin: N Practi ce ID: 0001 Saturnino lable Time: 02:15:00 PM Jes Harley [facility] 15:48:37 Body mass index 30+ - obesity 260298156 Completed 201609/07/2020 Body mass index (BMI) 36.0-36. 9, adult;Re corded Elsewher e: No [facility] Juvenile Counselor austin: N Practi ce ID: 0001 Saturnino lable Time: 02:15:00 PM Jes Harley [facility] 15:48:[address] Concept Completed 201509/07/2020 Encntr for pyrometer operator exam (general ) (routine ) w/o abn findings ;Recorde d Elsewher e: No Locat ion: [facility] S ource: EHR Juvenile Counselor austin: N Practi ce ID: 0001 Saturnino lable Time: 04:45:00 PM Jes Harley handy [facility] 15:48:39 Evaluati on finding [id number] Completed 201809/07/2020 Oth abn and inconclu sive findings on dx imaging of breast;R ecorded Elsewher e: No Locat ion: [facility] S ource: EHR Juvenile Counselor austin: N Practi ce ID: 0001 Saturnino lable Time: 04:00:00 PM Jes Harley [facility] 15:48:29 Amenorrh ea [id number] Completed 201009/07/2020 Absence of menstrua tion;Rec orded Elsewher e: No Locat ion: [facility] S ource: EHR Juvenile Counselor austin: N Practi ce ID: 0001 Saturnino lable Time: 03:45:00 PM Jes Cricket handy [facility] 15:48:25 Speciali zed medical examinat ion Completed 201009/07/2020 Routine gynecolo gical examinat ion;Prac valeria ID: [id number] Jes Harley [facility] 15:48:41 Obesity [id number] Completed 201409/07/2020 Obesity, unspecif ied;Prac valeria ID: [id number] Jes Harley [facility] 15:48:31 Problem Notes None recorded. Procedures Surgical History Date Name Laterality Status Provider Name and Address Organization Details Recorded Time 11/24/19 23 Date of Last Pap Smear completed Jes Harley [facility] 11/23/2022 11:47:26 11/12/19 22 Knee arthroscopy/surger y completed Jes Harley [facility] 11/23/2022 11:48:10 10/05/19 21 Date of Last Mammogram completed [facility] 10/13/2021 12:44:06 08/12/19 19 completed [facility] 09/07/2020 15:50:02 08/12/19 19 Colonoscopy completed [facility] 09/07/2020 15:49:47 02/11/19 19 mammography and biopsy of right breast completed [facility] 09/02/2019 17:18:30 02/11/19 16 Colonoscopy completed [facility] 09/07/2020 15:49:43 02/11/19 16 cardiac catheterization completed [facility] 09/02/2019 17:16:54 02/11/19 03 mammography and biopsy of right breast completed [facility] 09/02/2019 17:18:27 02/11/18 98 section completed [facility] 09/02/2019 17:17:22 02/11/18 98 ligation of bilateral fallopian tubes completed [facility] 09/02/2019 17:17:51 02/11/18 95 section completed [facility] 09/02/2019 17:17:14 Imaging Results None recorded. Procedure Notes None [...] Prescrib ed Elsewher e: Yes Loca tion: [facility] odify By: miguel deng DateTime : 12/29/19 11 03:45:00 PM Not Available Not Available Not Available Vitamin D2 1,250 mcg (50,000 unit) capsule take 1 capsule (95572HE ITS) by oral route every week 02/17 completed Prescrib ed Elsewher e: No Locat ion: [facility] odify By: lorri nicholson DateTime : 03/04/19 14 09:49:43 AM Not Available Not Available Not Available Lipitor 10 mg tablet take 1 tablet by oral route every day 09/07 completed Prescrib ed Elsewher e: Yes Loca tion: [facility] odify By: austin gutierrez DateTime : [...] Updated DateTime 09/02/2019 149.23 cm 36.1 kg/m2 93625.85 g 144 mm[Hg] 83 mm[Hg] Jes Harley [facility] 0 12:21:20 Date Recorded Body height Body mass index (BMI) Body weight Systolic blood pressure Diastolic blood pressure Provider Name and Address Organization Details Last Updated DateTime 09/07/2020 151.13 cm 33.8 kg/m2 21850.7 g 143 mm[Hg] 90 mm[Hg] Jes Harley [facility] 1 15:47:22 Date Recorded Body height Body mass index (BMI) Body weight Systolic blood pressure Diastolic blood pressure Provider Name and Address Organization Details Last Updated DateTime 10/13/2021 151.13 cm 35.9 kg/m2 25270.22 g 128 mm[Hg] 85 mm[Hg] Jes Harley [facility] 2 12:43:02 Date Recorded Body height Body mass index (BMI) Body weight Systolic blood pressure Diastolic blood pressure Provider Name and Address Organization Details Last Updated DateTime 11/23/2022 151.13 cm 35.3 kg/m2 81732.44 g 128 mm[Hg] 84 mm[Hg] Jes Harley [facility] 3 11:46:45 Social History Question Answer Notes LastModified by Organizat ion Details LastModified Time Tobacco Smoking Status Never Smoker Jes Harley [facility] 10/13/2021 12:44:06 Are You Blind Or Do You Have Difficulty Seeing? No Information n ot available 09/07/2020 What Is Your Level Of Caffeine Consumption? Moderate Information not available 10/13/2021 In The 14 Days Before Symptom Onset, Have You Had Close Contact With A Laboratory-confirm ed COVID-19 While That Case Was Ill? No Information n ot available 09/07/2020 In The 14 Days Before Symptom Onset, Have You Had Close Contact With A Person Who Is Under Investigation For COVID-19 While That Person Was Ill? No [email or web address] Information not available 09/07/2020 Have You Been To An Area Known To Be High Risk For COVID-19? No [email or web address] Information not available 09/07/2020 Are You Deaf Or Do You Have Serious Difficulty Hearing? No [email or web address] Information not available 09/07/2020 What Type Of Diet Are You Following? REGULAR [email or web address] Information n ot available 09/07/2020 Which Illicit Or Recreational Drugs Have You Used? None [email or web address] Information not available 10/13/2021 What Is The Highest Grade Or Level Of School You Have Completed Or The Highest Degree You Have Received? [id number] Information not available 10/13/2021 Are There Any Guns Present In Your Home? No [email or web address] Information not available 10/13/2021 What Was The Date Of Your Most Recent Tobacco Screening? 11/23/2022 Information not available 11/23/2022 Have You Ever Been Counseled For Unhealthy Alcohol Use? No Information not available 10/13/2021 Do You Use Your Seat Belt Or Car Seat Routinely? Yes Information not available 09/07/2020 Do You Have Smoke And Carbon Monoxide Detectors In Your Home? Yes [email or web address] Information not available 09/07/2020 How Much Tobacco Do You Smoke? No [email or web address] Information not available 09/02/2019 Do You Use Sunscreen Routinely? Yes [email or web address] Information not available 09/07/2020 Has Tobacco Cessation Counseling Been Provided? No [email or web address] Information not available 10/13/2021 Have You Used IV Drugs? No [email or web address] Information not available 10/13/2021 Do You Have Difficulty Walking Or Climbing Stairs? No [email or web address] Information not available 10/13/2021 Sex: Unknown Functional Status Question Answer Note LastModified by Organizat ion Details LastModified Time Do you use any illicit or recreational drugs? No [email or web address] Information not available 09/07/2020 Do you or have you ever used any other forms of tobacco or nicotine? No [email or web address] Information not available 10/13/2021 What is your level of alcohol consumption? Occasional [email or web address] Information not available 09/02/2019 Do you or have you ever used smokeless tobacco? Never used smokeless tobacco [email or web address] Information not available 10/13/2021 Are you able to walk? YESWOREST [email or web address] Information not available 09/07/2020 Are you able to care for yourself? Yes [email or web address] Information not available 10/13/2021 What is your occupation? Retired [email or web address] Information not available 10/13/2021 Do you have difficulty dressing or bathing? No [email or web address] Information not available 10/13/2021 Do you or have you ever used e-cigarettes or vape? Never used electronic cigarettes [email or web address] Information not available 10/13/2021 What is your exercise level? Occasional [email or web address] Information not available 09/02/2019 Mental Status Question Answer Note LastModified by Organization D etails LastModified Time Do you feel stressed (tense, restless, nervous, or anxious, or unable to sleep at night)? [id number] [email or web address] Information not available 09/07/2020 Family History Relationship Description Onset Age of this Age Resolved Age Notes LastModified by Organization Details LastModified Time Sister Disorder of thyroid gland [email or web address] Not available 09/01 17:14:34 Brother Asthma [email or web address] Not availabl e 09/02/2019 17:14:40 Mother Diabetes mellitus [email or web address] Not available 09/01 17:14:56 Mother Depressive disorder [email or web address] Not available 09/01 17:15:07 Mother Anxiety disorder [email or web address] Not available 09/01 17:15:15 Mother Hypertensive disorder Not available 09/01 17:15:27 Mother Malignant tumor of kidney [email or web address] Not available 2021 12:31:10 Father Diabetes mellitus Not available 09/01 17:14:56 Father Bipolar disorder [email or web address] Not available 2021 12:31:10 Notes:Brother: Asthma Father : Diabetes mellitus, Mental illness Mother: Diabetes mellitus, Mental illness, Hypertension, kidney cancer Sister: Thyroid disease Medical History Condition Response Allergies (Food, seasonal, environmental ) N Other N Breast Cancer N Drug/Latex Allergies/Reactions N Blood Transfusion N Dermatologic Disorders N Lung Disease N Defects or Inherited Disease N Breast Problem N Gestational Diabetes N Hematologic disorders N Anesthesia Complications N History of STI N Deep Vein Thrombosis N Polycystic ovary syndrome N Anxiety Disorder Y Autoimmune disease N Arthritis N Infertility N Polyps N Acid Reflux (GERD) N History of abnormal pap N Cancer N Stroke N Varicosities N Neurologic/Epilepsy N Endometriosis N High Cholesterol Y Headaches N Fibromyalgia N Kidney Disease N Heart Problems Y Kidney or Bladder Problems N Thyroid Problems N GI Problems N Eating Disorder N Anemia N Art (IVF or FET) N Psychiatric Illness N Ovarian Cancer N Diabetes N Pulmonary (TB, Asthma) N Hepatitis/Liver Disease N No Past Medical History N Eczema N Urinary Tract Infection N Abuse/Domestic Violence N Asthma N Trauma/Violence N Depression/ depression Y Heart Disease N Pre-Eclampsia N Hypertension N Osteoporosis N Thrombophilias N Gynecological History Statement/Question Response Date of [...] SNOMED-CT Code Diagnosis ICD10 Code Diagnosis Note [id number] Lisbeth Self [address],[facility] [place] [address] 09/02/2019 12:01:46 09/02/2019 12:33:37 Hypercholesterolemia 22229348 E78.00 Depressive disorder 3548 9007 F32.9 Gynecologi c examination 16659742 Z01.419 [id number] Lisbeth Self CNM [address],[facility] [place] [address] 09/07/2020 15:34:09 09/07/2020 16:19:31 Anxiety 99087792 F41.9 Gynecologi c examination 15890985 Z01.419 [id number] Lisbeth Self CNM [address] [address] 10/13/2021 12:30:54 10/13/2021 14:02:51 Gynecologic examination 93158002 Z01.419 Z11.51 [id number] Lisbeth Self CNM [address] [address] 11/23/2022 11:12:09 11/23/2022 12:07:41 Gynecologic examination 73277709 Z01.419 Z11.51 Abnormal v asomotor function 60219641 I73.89 Health Concerns Section Related Observation LastModified by Organization Detai ls LastModified Time None Recorded Concern Status LastModified by Organization Details LastModified Time None Recorded Advance Directives Directive None Recorded Payers Insurance Date Sequence Insurance Name Policy Number Policy Ram Covered Member ID Ram Member ID Guarantor Name 02/27/2024 1 [facility] [id number] Mallika Sadi [id number] Mallika Palms 02/27/2024 1 [employer] - DOS PRIOR TO 20 - [facility] BENEFITS PLAN [id number] Mallika Sadi [id number] Mallika Palms 02/27/2024 1 [employer] - [facility] BENEFITS PLAN (PPO) [id number] Mallika Sadi [id number] Mallika Palms 02/27/2024 1 [facility] [id number] Mallika Sadi [id number] Mallika Sadi 02/27/2024 1 [employer] (MEDICARE REPLACEMENT/ ADVANTAGE - PPO) [id number] Mallika K Sadi [id number] Mallika Sadi Notes Date Note Type Note [...] daily Lisbeth Self CNM [address], [place], [address], [facility] 09/02/2019 12:33:29 09/07/2020 text/html Annual GYNReport [...] on dexa and colonoscopy Lisbeth Self CNM [address], [place], [address], [facility] 09/07/2020 16:07:21 10/13/2021 text/html Annual GYNReport [...] scan has mammogram scheduled Lisbeth Self CNM [address], [place], [address], [facility] 10/13/2021 13:02:26 11/23/2022 text/html Annual GYNReport [...] a cruise this next year, went to [place] and aisha since last visithad right knee replacement Lisbeth Self, JULIAN [address], [place], [address], [facility] 11/23/2022 12:05:44 OBGyn Episode Ob Episode Information Episode Created Date Number of Fetuses Patient Bloodtype Patient rh Status Prepregnancy Weight lbs Domestic Partner Domestic Partner Phone Father Name Canvas Goods Maker Status 09/02/19 20 1 CLOSED Fetus Data [...] Domestic Partner Domestic Partner Phone Father Name Canvas Goods Maker Status 09/02/19 20 1 CLOSED Fetus Data [...]
--- OUTSIDE RECORDS SUMMARY | 2024-07-28 12:31 | XMS_ITS | Clinical Summary ---
Author Organization [facility] Address [address] [place] [address] Care Team Providers Care It Security Architect Name Role Phone Unavailable Primary Care Provider Unavailabl e Source Comments [facility],non-owned Affiliates and Associated Physician Practices is amultiple site organization consisting of ambulatory clinics and hospital sitesin [place], [place], [place] and [place]. This disclosure is being madepursuant to the Care Everywhere program and may not contain all information available regarding this patient. 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
--- OUTSIDE RECORDS SUMMARY | 2024-07-28 12:31 | XMS_ITS | Data Portability ---
Author Organization [place] [facility] [place] [employer], Main Office Address [address] [place] [address] Care Team Providers Care Linux Server Administrator Name Role Phone MARYCRUZ العلي Primary Care Provider MARYCRUZ العلي Referring Provider Assessment Encounter Date Assessment Date Assessment [...] more than half the time spent in [id number] care. [email or web address] Not available 01/05/2023 16:03:03 Plan [...] Recorded Time Pain of right knee joint [id number] Active 2022 JACKSON Pinto [employer] 14:50:28 Problem Notes None recorded. Procedures Surgical History Date Name Laterality Status Provider Name and Address Organization Details Recorded Time section completed JACKSON Zaragoza [employer] 12/31/2022 14:49:44 Knee Replacement completed JACKSON Zaragoza [facility] [employer] [facility] 12/31/2022 14:49:52 Imaging Results None recorded. Procedure [...] Updated DateTime 12/31/2022 151.13 cm 34.8 kg/m2 14203.66 g JACKSON Pinto [facility] [employer] [facility] 12/31/2022 14:59:55 Social History None recorded. Functional Status Question Answer Note LastModified by Organizat ion Details LastModified Time What is your level of alcohol consumption? Occasional [email or web address] Information not available 12/31/2022 Mental Status None recorded. Family History Relationship Description Onset Age of this Age Resolved Age Notes LastModified by Organization Details LastModified Time Mother Heart disease [email or web address] Not available 2022 14:49:01 Mother Family history of malignant neoplasm Not available 2022 14:49:23 Father Family history of stroke [email or web address] Not available 2022 14:49:13 Medical History No medical history recorded. Gynecological HistoryNo gynecological history recorded. Obstetrics History GPAL:G 0 P 0 0 0 0 Past Encounters Encounter ID Performer Location Encounter Start Date Encounter Closed Date Diagnosis/Indication Diagnosis SNOMED-CT Code Diagnosis ICD10 Code Diagnosis Note [id number] Jose Luis Andrea MD [facility] [address] [place] [address] 12/31/2022 14:29:51 01/07/2023 11:05:50 Pain of right knee joint [id number] 82491 M25.561 Health Concerns Section Related Observation LastModified by Organization Detai ls LastModified Time None Recorded Concern Status LastModified by Organization Details LastModified Time None Recorded Advance Directives Directive None Recorded Payers Insurance Date Sequence Insurance Name Policy Number Policy Ram Covered Member ID Ram Member ID Guarantor Name 01/07/2023 1 [employer] (MEDICARE REPLACEMENT/ ADVANTAGE - PPO) [id number] Mallika Avitia [id number] Mallika Sadi Notes Date Note Type Note [...] No radiographic complications. Jose Luis Andrea MD [address] [facility], [facility] [address], [place], [address], [facility] [employer] 01/05/2023 16:03:16 OBGyn Episode No OBEpisode recorded.
== END 2024-07-28 11:31 | disposition home or self-care (01) ==
PROVIDERS: PCP Family Medicine; Visit Provider Advanced Practice Midwife
DX: R92.8 Other abnormal and inconclusive findings on diagnostic imaging of breast (principal)
CPT/HCPCS: 76642; 77061; 77065; G0279

== ENCOUNTER 2024-10-01 08:00 | Outpatient (CLI) | payer MEDICARE, SELFPAY ==
--- OUTSIDE RECORDS SUMMARY | 2024-09-29 09:25 | XMS_ITS | Encounter Summary ---
Author Organization [facility] Healthcare Address [address] [place] [address] Care Team Providers Care Side Puller Name Role Phone Leonila Jaramillo MD Primary Care Provider Reason for Referral * Diagnostic Imaging (Routine) - Authorized Specialty Diagnoses / Procedures Referred By Contac t Referred To Contact Diagnoses Chronic pain of right knee Procedures Imaging Genicular Nerve Block (55242) Benigno Albert MD [address] [address] Phone: tel: fax: [address] [place] [address] Referral ID Status Reason Start Date Expiration Date V isits Requested Visits Authorized [id number] Authorized 09/29/2024 10/29/2025 1 1 * Consultation (Routine) - Pending Review Specialty Diagnoses / Procedures Referred By Contac t Referred To Contact Pain Management Diagnoses History of arthroplasty of right knee Simón Mulligan MD [address] [facility] [address] [place] [address] Phone: tel: fax: [address] [place] [address] Referral ID Status Reason Start Date Expiration Date Visits Requested Visits Authorized [id number] Pending Review Specialty Services Required 08/25/2024 09/24/2025 1 1 Question Answer Please select the performing region: [facility] [[id number]] # of visits: 1 Comments History RTKA Reason for Visit * Reason Comments Initial Consult * Consultation (Routine) - Pending Review Specialty Diagnoses / Procedures Referred By Contac t Referred To Contact Pain Management Diagnoses History of arthroplasty of right knee Simón Mulligan MD [address] [facility] [address] [place] [address] Phone: tel: fax: [facility] [address] [place] [address] Referral ID Status Reason Start Date Expiration Date Visits Requested Visits Authorized [id number] Pending Review Specialty Services Required 08/25/2024 09/24/2025 1 1 Encounter Details Date Type Department Care Team (Latest Contact Info) Description 09/29/2024 9:25 AM CDT - 09/29/2024 11:59 PM CDT Hospital Encounter [facility] [address] [facility] [address] [place] [address] Benigno Albert MD [address] [facility] [address] [place] [address] Chronic pain of right knee (Primary Dx) Discharge Disposition: Discharge to home or self care Social History Tobacco Use Types Packs/Day Years Used Date Smoking Tobacco: Never Alcohol Use Standard Drinks/Week Comments Yes 0 (1 standard drink = 0.6 oz pur e alcohol) AUDIT-C Answer Date Recorded Q1: How often do you have a drink containing alc ohol? 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 Gender Identity Not on file Sexual Orientation Not on file documented as of this encounter Last Filed Vital Signs Vital Sign Reading Time Taken Comments Blood Pressure 143/84 09/29/2024 9:30 AM CDT Pulse 75 09/29/2024 9:30 AM CDT Temperature 36.3 C (97.3 F) 09/29/2024 9:30 AM CDT Respiratory Rate 16 09/29/2024 9:30 AM CDT Oxygen Saturation 95% 09/29/2024 9:30 AM CDT Inhaled Oxygen Concentration - - Weight 72.6 kg (160 lb) 09/29/2024 9:30 AM CDT Height 152.4 cm (5') 09/29/2024 9:30 AM CDT Body Mass Index 31.25 09/29/2024 9:30 AM CDT documented in this encounter Functional Status documented as of this encounter Discharge Instructions * Patient Instructions* Julee Castillo, RUPA - 09/29/2024 9:45 AM CDT [facility] DISCHARGE INSTRUCTIONS [phone] (Saturday-Saturday 7:30 am - 4:00 pm) PLAN: PROCEDURE TODAY: PROCEDURE AT NEXT VISIT: Right Knee Genicular Nerve Block DIAGNOSTIC TEST(S): FOLLOW UP: The Pain Management Center is committed to providing your medication refills in a timely manner. When submitting a refill request, please note the following guidelines: Federal guidelines recommend patients with chronic pain, for whom opioid medications are prescribed, be evaluated at least once every two-three months.The Pain Management Center adheres to these guidelines and patients should plan to be seen at least every two-three months (or more frequently, as deemed appropriate by the prescribing provider). To allow timely scheduling of evaluations, please contact the office to schedule your appointment 6-8 weeks in advance. For all opioid/narcotic prescription refills, please contact the Pain Management Center at least 7 days prior to the date of need. Call [phone] choose option #5 and leave the following information: Name, date of , and phone number Name(s) of the medication(s) needing refill Name and number for the pharmacy where the refill(s) should be sent All non-opioid/non-narcotic refill requests should be submitted directly to the pharmacy. The pharmacy will then contact the Pain Management Center with the necessary information. For any questions about your visit or your procedure, please call the Pain Management Center [phone] (Saturday-Saturday 7:30 am - 4:00 pm). Please leave a message on the Nurse Line for ALL Non Urgent matters (option #5). If you have an urgent matter during normal business hours please choose option #4 for current patients. If you need urgent attention after 4 pm, on the weekends, or a holiday that can not wait until the office opens: Please call 911 or go to the nearest Emergency Room. GENICULAR NERVE BLOCK [facility] PRE-PROCEDURE INFORMATION SHEET What is a Genicular Nerve Block? A genicular nerve block is a test. Nerve branches around your knee consist of 3 genicular nerves - Superior Medial, Superior Lateral and Inferior Medial. Numbing medicine is used to determine if you may be a candidate for a Cooled Radiofrequency Treatment for your knee pain due to chronic osteoarthritis or pain after knee surgery. What should I do before my procedure? Let your doctor or nurse know if you are taking any blood thinners (such as Aggrenox, Coumadin, Effient, Eliquis, Lovenox, Plavix, Pletal, Pradaxa, Ticlid or Xareto). Bring someone with you to drive you home. Your nurse will let you know if you need to stop eating or drinking before this procedure and how to take your medications. If you are a diabetic, check with your primary care doctor for instructions on how to take your diabetes medication on the day of your procedure. An x-ray machine will be used during the procedure. Let your doctor or nurse know if there is any chance you may be . What should I expect during my procedure? Your procedure will be done on an x-ray table while you are awake. A certified medical technician assistant will take x-rays during your procedure. A nurse will monitor your blood pressure, breathing and heart rate. Your doctor will use a local anesthetic to numb the area. What should I expect after my procedure? A nurse will monitor you for a short while in the recovery area. You may experience dizziness, numbness or weakness in your affected leg. These symptoms are the result of the numbing medicine and generally wear off in 6-8 hours and are almost always gone by the next morning. You will keep a pain diary for 8 hours and will be called the next business day for your pain diaryscores. Your doctor uses these scores to determine whether or not a Cooled Radiofrequency Treatmentwould possibly be helpful for your knee pain. If you have any questions before your procedure, please call [facility] at [phone] documented in this encounter Medications at Time of Discharge aspirin (ASPIR-81) 81 mg tablet take 1 tablet by oral route every day 0 0 04/05/2015 atorvastatin (LIPITOR) 20 mg tablet take 1 tablet by oral route every day 0 0 04/05/2015 cyanocobalamin (Vitamin B-12) 50 mcg tabletIndications :Prevention of Vitamin B12 Deficiency Take 1 tablet (50 mcg total) by mouth daily FLUoxetine (PROzac) 20 mg capsule take 1 capsule by oral route every day in the morning 0 0 04/05/2015 ibuprofen 200 mg tab/cap Take by mouth every 6 (six) hours as needed for pain metoprolol (LOPRESSOR) 25 mg tablet take 1Tablet by ORAL route 2 times every day 0 0 04/05/2015 vitamin D3-vitamin K2 25 mcg (1,000 unit)-90 mcg tablet,disintegra ting Take by mouth vitamin E 400 unit capsule Take 1 capsule (400 Units total) by mouth documented as of this encounter Discharge Disposition Disposition Code Departure Means Destination Discharge to home or self care documented in this encounter Progress Notes * Benigno Albert MD - 09/29/2024 9:45 AM CDT Patient Name: Mallika Avitia : 1955 Today's Date: 09/29/2024 PCP: Leonila Jaramillo MD Referring: Simón Patel* Chief Complaint Patient presents with Initial Consult HPI: Patient Summary: The patient is experiencing chronic knee pain following a knee replacement surgery nearly three years ago. The primary reason for the encounter is to discuss persistent pain and potential interventional pain management options. Right Knee Pain: The patient underwent knee replacement surgery nearly three years ago, in November 2021. Despite completing physical therapy, the patient continues to experience constant stiffness and a dull ache, especially after physical activity. The pain is described as being on the lateral aspect of the knee, sometimes radiating to the back/popliteal fossa without tenderness upon palpation. The patient reports decreased stamina and difficulty with activities such as walking, biking, and shopping due to knee pain. Ibuprofen is used for pain relief; meloxicam was tried previously but was ineffective. 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 Pain Assessment Pain Score: 2 Pain Location: Knee Pain Radiating Towards: Can radiate to posterior knee Pain Descriptors: Aching, Discomfort, Heaviness, Nagging, Pressure, Sore, Tightness, Tiring, Other (Comment) (stiff) Pain Frequency: Constant/continuous Pain Onset: Ongoing Imagin radiographs of the right knee are submitted for interpretation. 2 component right knee arthroplasty in near-anatomic alignment. No hardware fracture or periprosthetic lucency. No dislocation. Trace right knee joint effusion. Mild bilateral genu varus. There is moderate tricompartmental left knee osteoarthritis. IMPRESSION: 1. 2 component right knee arthroplasty near anatomic alignment. 2. Mild bilateral genu varus. 3. Moderate tricompartmental left knee osteoarthritis. Patient's Medications New Prescriptions No medications on file Previous Medications ASPIRIN (ASPIR-81) 81 MG TABLET take 1 tablet by oral route every day Authorizing Provider: Mariia Thakkar MD Notes: -- ATORVASTATIN (LIPITOR) 20 MG TABLET take 1 tablet by oral route every day Authorizing Provider: Mariia Thakkar MD Notes: -- CYANOCOBALAMIN (VITAMIN B-12) 50 MCG TABLET Take 1 tablet (50 mcg total) by mouth daily Authorizing Provider: Cristopher Morgan MD Notes: -- FLUOXETINE (PROZAC) 20 MG CAPSULE take 1 capsule by oral route every day in the morning Authorizing Provider: Mariia Thakkar MD Notes: -- IBUPROFEN 200 MG TAB/CAP Take by mouth every 6 (six) hours as needed for pain Authorizing Provider: Cristopher Morgan MD Notes: -- METOPROLOL (LOPRESSOR) 25 MG TABLET take 1Tablet by ORAL route 2 times every day Authorizing Provider: Mariia Thakkar MD Notes: -- VITAMIN D3-VITAMIN K2 25 MCG (1,000 UNIT)-90 MCG TABLET,DISINTEGRATING Take by mouth Authorizing Provider: Cristopher Morgan MD Notes: -- VITAMIN E 400 UNIT CAPSULE Take 1 capsule (400 Units total) by mouth Authorizing Provider: Cristopher Morgan MD Notes: -- Modified Medications No medications on file Discontinued Medications No medications on file No Known Allergies Past Medical History: Diagnosis Date Hyperlipidemia Hyperlipidemia; Comments: REHAN 04/05/2015 - Past Surgical History: Procedure Laterality Date SECTION JOINT REPLACEMENT KNEE SURGERY Family History Problem Relation Age of Onset Heart disease Mother Heart disease; Social History Tobacco Use Smoking status: Never Smokeless tobacco: Not on file Substance and Sexual Activity Drug use: Not on file Sexual activity: Not on file Alcohol Use: Unknown (09/29/2024) AUDIT-C Frequency of Alcohol Consumption: Monthly or less Average Number of Drinks: Not on file Frequency of Binge Drinking: Not on file Vitals BP 143/84 (BP Location: Right arm, Patient Position: Sitting) Pulse 75 Temp 97.3 ??F (36.3 ??C) (Temporal) Resp 16 Ht 152.4 cm (5') Wt 72.6 kg (160 lb) SpO2 95% BMI 31.25 kg/m?? Physical Exam: General: No acute distress, conversant HEENT: Anicteric sclerae. Normocephalic, atraumatic. Hearing grossly normal. Neck: Trachea midline. Respiratory: Unlabored breathing. Normal effort. No audible wheeze/stridor. Abdomen: Not examined Musculoskeletal: Gait: normal Psychiatric: Normal mood, affect, insight. Skin: Warm. No rashes or lesions in the visible skin. Lab/Radiology/Diagnostic Review: Lab and Radiology Findings reviewed, Clinical significance noticed. ASSESSMENTS: Encounter Diagnosis Name Primary? Chronic pain of right knee Yes Plan: - Injections: Right genicular nerve block with potential for RFA. Could consider PNS - Medications: Continue current use of ibuprofen as needed for pain. Discussed previous trial of meloxicam and its ineffectiveness. - Imaging: No new imaging indicated at this time as recent x-rays show good alignment and no abnormalities. - Referrals: Consider referral for acupuncture if patient desires, though it may not be covered by insurance. - PT/Pain Psychology: Continue with current exercise regimen and home exercise program to maintain physical fitness and mobility. Benigno Albert MD Attending Physician, Pain Management [facility], [facility] documented in this encounter Miscellaneous Notes * Perioperative Nursing Note - Julee Castillo RN - 09/29/2024 9:45 AM CDT Escorted patient to exam room. Obtained vital signs. Reviewed patient's allergies and current medications. Obtained and verified patient's simple medical/surgical history. Confirmed the reason for visit with the patient. Obtained the following screening assessments: [] Modified Oswestry Low Back Pain Questionnaire [x] PMC Intake Questionnaire [] PMC Follow up Questionnaire [x] Fall Risk Assessment (Francy, Kristal Alonso, Geo) [x] Depression/Anxiety Assessment (GAD7, PHQ-9, [place] Suicide, Dodd Depression) [] Disability Scale [] CAGE [] SOAPP-R Additional tasks included: [] Random medication adherence check (pill verification by two nurses) [] Work/school note written [] Pended CT/MRI/MRA order [] Pain assessment for multiple sites [x] AVS Vital Signs Temp: 97.3 ??F (36.3 ??C) Temp src: Temporal Pulse: 75 Resp: 16 BP: 143/84 BP Location: Right arm Patient Position: Sitting SpO2: 95 % Post-visit transport confirmed with the patient. Total time spent for patient care, education, and care coordination was approximately 11-20 minutes. documented in this encounter Plan of Treatment Scheduled Orders Name Type Priority Associated Diagnoses Orde r Schedule Imaging Genicular Nerve Block (18407) Imaging Schedule Routine, Read Routine (OP Routine) Chronic pain of right knee Expected: 09/29/2024, Expires: 09/29/2025 Scheduled Referrals Name Type Priority Associated Diagnoses Order Schedule Ambulatory referral to Pain Management Outpatient Referral Routine Once for 1 Occurrences starting 09/29/2024 until 09/29/2024 documented as of this encounter Goals Goal Patient Goal Type Associated Problems Recent Progress Patient-Stated? Author CCM Chronic Pain Care Plan Chronic Care Management No Julee Castillo, RN Note: Problem: Chronic Pain Goals: 1. Minimize further functional decline 2. Maximize quality of life 3. Control pain Strategies: - Activity/exercise program recommendation - Conservative stepwise pain medicine strategy with multi-disciplinary approach - Recommend healthy lifestyle strategies and compensatory methods as needed Reduce the likelihood of falling Lifestyle Julee vIy, RUPA Note: Below are four things you can do to prevent falls: Begin an exercise program to improve your leg strength & balance Ask your doctor or pharmacist to review your medicines Get annual eye check-ups & update your eyeglasses Make your home safer by: Removing clutter & tripping hazards Putting railings on all stairs & adding grab bars in the bathroom Having good lighting, especially on stairs Contact your local community or [facility] for information on exercise, fall prevention programs, or options for improving home safety. documented as of this encounter Visit Diagnoses Diagnosis Chronic pain of right knee- Primary documented in this encounter Care Teams Side Puller Relationship Specialty Start Date End Date Leonila Jaramillo MD [address] [facility] [place] [address] [place] [address] PCP - General Family Practice 08/25/24 documented as of this encounter
--- OUTSIDE RECORDS SUMMARY | 2024-10-01 08:16 | XMS_ITS | Clinical Summary ---
Author Organization [facility] Address [address] [place] [address] Phone Care Team Providers Care Coremaker Supervisor Name Role Phone Leonila Jaramillo MD Primary Care Provider Allergies No known active allergies Medications aspirin (ASPIR-81) 81 mg tablet take 1 tablet by oral route every day 0 0 6 Active Additional Information Patient not taking.Reported on 09/29/2024 metoprolol (LOPRESSOR) 25 mg tablet take 1Tablet by ORAL route 2 times every day 0 0 6 Active Additional Information Patient not taking.Reported on 09/29/2024 atorvastatin (LIPITOR) 20 mg tablet take 1 tablet by oral route every day 0 0 6 Active FLUoxetine (PROzac) 20 mg capsule take 1 capsule by oral route every day in the morning 0 0 6 Active Additional Information Patient taking differently: 40 mg, Reported on 09/29/2024 cyanocobalamin (Vitamin B-12) 50 mcg tabletIndicatio ns:Prevention of Vitamin B12 Deficiency Take 1 tablet (50 mcg total) by mouth daily Active vitamin D3-vitamin K2 25 mcg (1,000 unit)-90 mcg tablet,disinteg rating Take by mouth Active vitamin E 400 unit capsule Take 1 capsule (400 Units total) by mouth Active ibuprofen 200 mg tab/cap Take by mouth every 6 (six) hours as needed for pain Active Active Problems Problem Noted Date Diagnosed Date Arthralgia of right knee 12/30/2022 Fibrocystic breast changes, right 07/29/2018 Abnormal mammogram of right breast 07/16/2018 Breast signs and symptoms 07/16/2018 Encounters Date Type Department Care Team Description 09/29/2024 9:25 AM CDT - 09/29/2024 11:59 PM CDT Hospital [facility] [address] [place] [phone] Benigno Albert MD Chronic pain of right knee (Primary Dx) Discharge Disposition: Discharge to home or self care 08/26/2024 Telephone [facility] [address] [place] [phone] Isadora Jalloh RN PMC Intake Assessment 08/25/2024 8:43 AM CDT - 08/25/2024 11:59 PM CDT Hospital Encounter [facility] Radiology [address] [place] [address] [address] [place] [id number] History of arthroplasty of right knee Discharge Disposition: Discharge to home or self care 08/25/2024 8:15 AM CDT Lab [facility] [address] [place] [address] History of arthroplasty of right knee 08/25/2024 7:45 AM CDT Office Visit [facility] Medicine Orthopaedic Surgery [address] [place] [address] Medical Office Building [address] [place] [id number] Simón Mulligan MD History of arthroplasty of right knee (Primary Dx) from Last 3 Months Surgical History Surgery Date Site/Laterality Comments JOINT REPLACEMENT KNEE SURGERY SECTION Medical History Medical History Date Comments Hyperlipidemia Hyperlipidemia; Comments: JBP 04/05/2015 - Family History Medical History Relation Name Comments Heart disease Mother Heart disease; Relation Name Status Comments Mother Social History Tobacco Use Types Packs/Day Years [...] on file Legal Sex Female 3:47 PM [employer] Gender Identity Not on file Sexual Orientation Not on file Obstetrics History Last Filed Vital Signs Vital Sign Reading [...] Mass Index 31.25 09/29/2024 9:30 AM CDT Plan of Treatment Health Maintenance Due Date Last Done Comments Breast Cancer Screening-Mammogram 1955 Colon Cancer Screening-Colonoscopy 1955 Depression Screening 1955 Hepatitis C Screening 1955 Osteoporosis Screening-Bone Density Scan 1955 DTaP/Tdap/Td Vaccine (1 - Tdap) 10/29/1966 Hepatitis B Screening 10/29/1973 Well Visit 65+ 10/29/2020 Covid-19 Vaccine (7 - 2023-2 5 season) 2024 01/27/2024, 12/07/2021, 06/22/2021, Additional history exists Influenza Vaccine (#1) 2024 , 01/09/2023, 11/09/2021, Additional history exists Fall Risk Assessment 09/29/2025 09/29/2024 Zoster Vaccine Completed 03/01/2022, 09/28/2021 Pneumococcal vaccine 65+ Completed 04/04/2022 Goals Goal Patient Goal Type Associated Problems Recent Progress Patient-Stated? Author CCM Chronic Pain Care Plan Chronic Care Management Julee Ivy, RN Note: Problem: Chronic Pain Goals: 1. Minimize further functional decline 2. Maximize quality of life 3. Control pain Strategies: - Activity/exercise program recommendation - Conservative stepwise pain medicine strategy with multi-disciplinary approach - Recommend healthy lifestyle strategies and compensatory methods as needed Reduce the likelihood of falling Lifestyle Julee Ivy, RUPA Note: Below are four things you [...] on stairs Contact your local community or [facility] for information on exercise, fall prevention programs, or options for improving home safety. Procedures Procedure Name Priority Date/Time Associated Diagnosis Comments XR KNEE RIGHT 4 OR MORE VIEWS Schedule Routine, Read Routine (OP Routine) 08/25/2024 9:14 AM CDT History of arthroplasty of right knee ERYTHROCYTE SEDIMENTATION RATE STAT 08/25/2024 8:21 AM CDT History of arthroplasty of right knee CRP (ACUTE PHASE) STAT 08/25/2024 8:2 1 AM CDT History of arthroplasty of right knee from Last 3 Months Results * XR Knee Right 4 or More Views (08/25/2024 9:14 AM CDT) Anatomical Region Laterality Modality Lower Extremities, Knee Right Computed Radiography 08/25/2024 10:1 0 AM CDT Impressions 08/25/2024 6:13 PM CDT 1. 2 component right knee arthroplasty near anatomic alignment. 2. Mild bilateral genu varus. 3. Moderate tricompartmental left knee osteoarthritis. Dictated by: Yayo Hernandez MD The radiology attending physician has personally reviewed this study, and had reviewed and/or edited this written report and agrees with it. Electronically signed by: Chintan Amaya MD Narrative 08/25/2024 6:13 PM CDT EXAMINATION: XR KNEE RIGHT 4 OR MORE VIEWS HISTORY: Right knee arthroplasty. COMPARISON: None. FINDINGS: 4 radiographs of the right knee are submitted for interpretation. 2 component right knee arthroplasty in near-anatomic alignment. No hardware fracture or periprosthetic lucency. No dislocation. Trace right knee joint effusion. Mild bilateral genu varus. There is moderate tricompartmental left knee osteoarthritis. Procedure Note Micki Amaya MD - 08/25/2024 EXAMINATION: XR KNEE RIGHT 4 OR MORE VIEWS HISTORY: Right knee arthroplasty. COMPARISON: None. FINDINGS: 4 radiographs of the right knee are submitted for interpretation. 2 component right knee arthroplasty in near-anatomic alignment. No hardware fracture or periprosthetic lucency. No dislocation. Trace right knee joint effusion. Mild bilateral genu varus. There is moderate tricompartmental left knee osteoarthritis. IMPRESSION: 1. 2 component right knee arthroplasty near anatomic alignment. 2. Mild bilateral genu varus. 3. Moderate tricompartmental left knee osteoarthritis. Dictated by: Yayo Hernandez MD The radiology attending physician has personally reviewed this study, and had reviewed and/or edited this written report and agrees with it. Electronically signed by: Chintan Amaya MD Simón Mulligan MD IMG XR PROCEDURES Fi nal Result * Erythrocyte sedimentation rate (08/25/2024 8:21 AM CDT) Erythrocyte sedimentation rate 14 1 - 30 mm/hr Blood 08/25/2024 8:21 AM CDT 08/25/2024 8:26 AM CDT Simón Mulligan MD LAB BLOOD ORDERABLES Final Result [facility] [id number] [facility] [place] [address] * CRP (acute phase) (08/25/2024 8:21 AM CDT) Pathologist [facility] CRP <3.0 <=10.0 mg/L Blood 08/25/2024 8:21 AM CDT 08/25/2024 8:26 AM CDT us Simón Mulligan MD LAB BLOOD ORDERABLES Final Result [facility] [id number] [facility] [address] from Last 3 Months Insurance AET MEDICARE AET MEDICARE Care Teams Coremaker Supervisor Relationship Specialty Start Date End Date Leonila Jaramillo MD [facility] [address] [place] [address] PCP - General Family Practice 08/25/24
--- OUTSIDE RECORDS SUMMARY | 2024-10-01 08:16 | XMS_ITS | Clinical Summary ---
Author Organization [facility] Address [address] [place] [address] Care Team Providers Care Template Reproduction Technician Name Role Phone Randy Us MD Primary Care Provider [phone] Allergies No known active allergies Medications FLUoxetine [...] 04/18/2018 OSTEOPOROSIS SCREENING 10/29/2020 INFLUENZA VACCINE (#1) 2024 RSV VACCINE (60+ or ) (1 - [...] Most Recently Relevant to Health Maintenance Insurance [id number] OPT[employer] PPO [id number] Care Teams Template Reproduction Technician Relationship Specialty Start Date End Date Randy Us MD [address] [place] [address] PCP - General Family Practice 07/16/18
--- OUTSIDE RECORDS SUMMARY | 2024-10-01 08:16 | XMS_ITS | Clinical Summary ---
Author Organization [facility] [employer] Address [address] [place] [address] Care Team Providers Care Stationary Fireman Name Role Phone Unavailable Primary Care Provider Unavailabl e Source Comments [facility] [employer],non-owned Affiliates and Associated Physician Practices is amultiple site organization consisting of ambulatory clinics and hospital sitesin [place], [place], [place] and [place]. This disclosure is being madepursuant to the Care Everywhere program and may not contain all information available regarding this patient. Last updated [email or web address] Allergies No known active allergies Medications * [...] on file Legal Sex Female 6:16 AM [employer] JOCKEY Gender Identity Not on file Sexual Orientation [...] season) 2023 DEPRESSION SCREENING 02/12/2024 INFLUENZA VACCINE (#1) 2024 Respiratory Syncytial Virus (RSV) Vaccine Pt: [...] patient's age to complete this topic Insurance [facility]
[2024-10-01 12:59] LABS: Hematocrit 44.5 % (37.0-47.0); Hemoglobin 14.2 g/dL (12.0-15.0); Immature Granulocyte Percent A 0.4 % (0-0.5); Lymphocytes Absolute Auto 1.23 K/mm3 (0.9-3.2); Mean Corpuscular HGB Conc 31.9 g/dl (32-36); Mean Corpuscular Hemoglobin 27.8 pg (26-34); Mean Corpuscular Volume 87.3 fl (80-100); Nucleated Red Blood Cells Absolute Auto 0.000 K/mm3 (0.0-0.012); Nucleated Red Blood Cells Perc 0.0 % (0.0-0.2); Platelet Count Result 252 k/mm3 (150-375); Red Blood Count 5.10 M/mm3 (4.2-5.4); White Blood Count 5.5 K/mm3 (4.5-10.0)
[2024-10-01 13:10] LABS: Alanine Aminotransferase 16 U/L (6-35); Albumin Level 4.1 g/dL (3.5-5.1); Alkaline Phosphatase 92 U/L (38-126); Anion Gap 7 mmol/L (4-12); Aspartate Amino Transferase 31 U/L (14-36); Bilirubin,Total 0.5 mg/dL (0.2-1.3); Blood Urea Nitrogen 7 mg/dL (7-17); Calcium 9.3 mg/dL (8.4-10.2); Carbon Dioxide 26 mmol/L (22-30); Chloride 104 mmol/L (98-107); Cholesterol 154 mg/dL (0-200); Estimated Glomerular Filt Rate > 60; Glucose 86 mg/dL (65-110); HDL Direct 52 mg/dL; Potassium 4.0 mmol/L (3.4-5.0); Sodium 137 mmol/L (137-145); Total Protein 7.1 g/dL (6.3-8.2); Triglycerides 74 mg/dL (<150)
[2024-10-01 13:42] LABS: Thyroid Stimulating Hormone Reflex 2.040 uIU/mL (0.465-4.68)
[2024-10-01 14:10] LABS: Vitamin B12 > 1000.0 pg/mL (239-931)
[2024-10-01 14:14] LABS: Hemoglobin A1C 5.5 % (<5.7)
== END 2024-10-01 08:01 | disposition home or self-care (01) ==
LOC: ANHGOSHLAB 08:01
PROVIDERS: PCP Family Medicine; Visit Provider Family Medicine
DX: E78.5 Hyperlipidemia, unspecified (principal); Z00.00 Encounter for general adult medical examination without abnormal findings; F33.9 Major depressive disorder, recurrent, unspecified; R74.01 Elevation of levels of liver transaminase levels; R73.9 Hyperglycemia, unspecified; E53.8 Deficiency of other specified B group vitamins; E55.9 Vitamin D deficiency, unspecified
CPT/HCPCS: 36415; 80053; 80061; 82306; 82607; 83036; 84443; 85025